=== PATIENT | female | born 1955 | race Caucasian/White ===

== ENCOUNTER → 2016-10-15 | Outpatient (CLI) | payer OTHER ==
[~2016-10-15] MED LIST: ACET65TA; DILA100C; PERCOCET PO; SUMA50TA2 PO
--- NOTE | 2016-10-15 14:16 | REP ---
MR BRAIN WITHOUT AND WITH CONTRAST: HISTORY: Lung carcinoma. CONTRAST: ProHance 7 mL. Several punctate areas of increased signal intensity on T2-weighted images are present in the periventricular and subcortical white matter. This represents small vessel ischemic disease. There is no intraparenchymal hemorrhage, infarct, mass or midline shift. There is no abdominal enhancement. The ventricular system and cortical sulci are dilated consistent with minimal volume loss. There is no extracerebral collection. The sinuses are clear. A 1 cm cyst is present in the left parotid gland. IMPRESSION: 1. Minimal small vessel ischemic disease. 2. Minimal volume loss. 3. 1 cm left parotid cyst. Ultrasound may be helpful for further evaluation. Signed by Andrea Baxter MD 10/15/2016 02:24 P
== END ==
LOC: M RAD 10:44
PROVIDERS: ATTEND Thoracic Surgery (Cardiothoracic Vascular Surgery)
DX: I73.9 Peripheral vascular disease, unspecified (principal); K11.6 Mucocele of salivary gland; C34.11 Malignant neoplasm of upper lobe, right bronchus or lung; R51 Headache
CPT/HCPCS: 70553; A9576

== ENCOUNTER → 2016-10-16 | Outpatient (CLI) | payer OTHER ==
--- NOTE | 2016-10-16 22:19 | ECGEPIP ---
Stationary ECG Study [facility] Test Date: 2016-10-16 Pat Name: ZEENAT BUSTOS Department: Room: - Gender: F Groutman: : 1955 Requested By: Triston Contreras Order Number: [id number] Reading MD: Da Kelly Measurements Intervals Force Rate: 65 P: 76 SD: 150 QRS: 146 QRSD: 84 T: 69 QT: 356 QTc: 372 Interpretive Statements Normal sinus rhythm Left atrial enlargement Force indeterminate Incomplete right bundle branch block Comparison tracing not on file Electronically Signed On 10-16-2016 22:18:54 EST by Da Kelly
== END ==
LOC: M LAB 11:16
PROVIDERS: ATTEND Thoracic Surgery (Cardiothoracic Vascular Surgery)
DX: R91.8 Other nonspecific abnormal finding of lung field (principal); R63.4 Abnormal weight loss

== ENCOUNTER → 2016-10-18 | Day surgery (SDC) | payer OTHER ==
[~2016-10-18] VITALS: Ht 157.5 cm; Wt 37.2 kg
[~2016-10-18] MED LIST changes: +BUPIVACAINE LIPOSOME/PF 1.3% 20ML (266MG/20ML) VIAL (EXPAREL) As Ordered ONE; +BUPIVACAINE LIPOSOME/PF 1.3% 20ML (266MG/20ML) VIAL (EXPAREL) XX ONE; +CETACAINE SPRAY 20GM (FLOOR STOCK) As Ordered ONE; +EPINEPHrine 1MG/10ML SYRINGE 1.5IN As Ordered ONE; +GLYCOPYRROLATE INJ 0.2 MG/ML 2 ML VIAL As Ordered ONE; +LIDOCAINE 1% MDV 20ML VIAL As Ordered ONE; +LIDOCAINE 2% INJ 100 MG/5 ML SDV (FOR ANES.) As Ordered ONE; +LR 1,000 ML IV SCH; +MIDAZOLAM INJ 2 MG/2 ML VIAL (J2250) As Ordered ONE; +MUPIROCIN 2% OINT 22 GM TUBE TOP ONE; +NEOSTIGMINE 1MG/ML 5 ML SYRINGE (J2710) As Ordered ONE; +ONDANSETRON 4MG/2ML VIAL (J2405) As Ordered ONE; +ONDANSETRON 4MG/2ML VIAL (J2405) IV PRN; +PERCOCET 5MG/325MG TAB As Ordered ONE; +PERCOCET 5MG/325MG TAB PO ONE; +PERCOCET 5MG/325MG TAB PO PRN; +PROPOFOL 200 MG/20 ML VIAL As Ordered ONE; +ROCURONIUM BROMIDE 50 MG/5 ML VIAL As Ordered ONE; +THROMBIN SOLN 20,000 UNITS KIT As Ordered ONE; +THROMBIN SOLN 5,000 UNITS VIAL As Ordered ONE; +VANCOMYCIN 1000 MG/20 ML VIAL (J3370) As Ordered ONE; +VANCOMYCIN HCL 1,000 MG, VIAL MATE ADAPTER 1 EACH in D5W 250 ML IV ONE; +ePHEDrine SULFATE 25 MG/5 ML(5MG/ML) SYRINGE As Ordered ONE; +fentaNYL 100 MCG/2 ML INJECTION (J3010) As Ordered ONE
--- NOTE | 2016-10-18 13:45 | REP ---
Chest two views HISTORY: Abnormal chest x-ray Comparison: None The lungs are hyperinflated. The lungs are clear. The heart is normal in size. The pulmonary vasculature is normal in appearance. The bony structure is intact. IMPRESSION: No acute disease. Signed by Andrea Baxter MD 10/18/2016 01:36 P
[2016-10-18] MEDS: THROMBIN SOLN 20,000 UNITS KIT XX ONE ×2 (15:24→15:51)
[2016-10-18] MEDS: fentaNYL 100 MCG/2 ML INJECTION (J3010) IV PRN ×4 (16:15→16:37)
--- NOTE | 2016-10-18 16:35 | REP ---
AP PORTABLE SITTING CHEST RADIOGRAPH, 10/18/2016: INDICATION: Abnormal chest radiograph. Post-op in the PACU. Cardiomediastinal silhouette is normal. There is moderate hyperinflation and flattening of the diaphragm consistent with COPD. There is cephalization of pulmonary vasculature consistent with pulmonary venous hypertension. Bilateral nipple shadows are projected over the inferior third chest bilaterally. Bones and soft-tissues within normal limits. There is no pneumothorax. IMPRESSION: 1. Hyperinflation with flattening of the diaphragm compatible with COPD. 2. Pulmonary venous hypertension. 3. No evidence of pneumothorax. MTDD
[2016-10-18 17:55] VITALS: BP 131/64
--- NOTE | 2016-10-19 08:58 | RO ---
DATE OF PROCEDURE: 10/18/2016 PREPROCEDURE DIAGNOSES: Mediastinal lymphadenopathy. Possible metastasis from right upper lobe lesion. POSTPROCEDURE DIAGNOSES: Mediastinal lymphadenopathy. Possible metastasis from right upper lobe lesion. PROCEDURE: Mediastinoscopy and bronchoscopy. SURGEON: Dr. Triston Knight. ENVIRONMENTAL CONSERVATION PROFESSOR: ANESTHESIA: ESTIMATED BLOOD LOSS: FINDINGS: Bronchoscopy revealed a normal right tracheobronchial tree. She had a very small trachea only accompanying a 7.5 tube. There are no endobronchial lesions seen. There are copious amounts of secretions which were suction aspirated. The mediastinoscopy showed s jen collection which looked anthracotic at the takeoff of the right and left bronchi at the emily. These were removed in toto. On a patient with single lumen endotracheal intubation, bronchoscopy was placed into the tracheobronchial tree with the above results. There were no endobronchial lesions seen. Subsegments were suction aspirated so they could thoroughly be inspected. Patient was then prepped and draped in the usual sterile fashion. A standard suprasternal notch incision was then made and carried down through the subcutaneous tissue. She is a very thin cachectic lady and a prominent neck vein was avoided medial to the sternocleidomastoid muscle. Pretracheal fascia was entered and the mediastinoscope was placed into the chest. Adventitious tissue was swept away with section dissector as well as electrocautery. I could get down and see clearly the takeoff of the right and left main stem bronchi. The precarinal node just at the takeoff of the upper and lower lobes could be seen. This was dissected out and then copiously biopsied to the point of removal. This was sent for permanent sections. They did look anthracotic to me. After achieving adequate hemostasis with and Gelfoam and electrocautery, the strap muscles were closed by use of #3-0 Vicryl running suture as was the subcutaneous tissue and the skin closed with running #4-0 Monocryl subcuticular suture. The patient tolerated the procedure well and left the operating room in satisfactory condition for the recovery room.
== END ==
LOC: M SDC 12:16 → MERGE 14:30
PROVIDERS: ATTEND Thoracic Surgery (Cardiothoracic Vascular Surgery)
DX: R91.8 Other nonspecific abnormal finding of lung field (principal); R63.4 Abnormal weight loss; J44.9 Chronic obstructive pulmonary disease, unspecified; I70.0 Atherosclerosis of aorta; F41.9 Anxiety disorder, unspecified; F32.9 Major depressive disorder, single episode, unspecified; G40.919 Epilepsy, unspecified, intractable, without status epilepticus; L50.9 Urticaria, unspecified; G43.801 Other migraine, not intractable, with status migrainosus; F12.90 Cannabis use, unspecified, uncomplicated; M85.80 Other specified disorders of bone density and structure, unspecified site; R64 Cachexia; R29.898 Other symptoms and signs involving the musculoskeletal system; C34.90 Malignant neoplasm of unspecified part of unspecified bronchus or lung; Z88.0 Allergy status to penicillin; Z88.5 Allergy status to narcotic agent; Z88.6 Allergy status to analgesic agent; Z88.8 Allergy status to other drugs, medicaments and biological substances; Z79.899 Other long term (current) drug therapy; Z86.73 Personal history of transient ischemic attack (TIA), and cerebral infarction without residual deficits; Z98.51 Tubal ligation status; Z87.81 Personal history of (healed) traumatic fracture; Z20.1 Contact with and (suspected) exposure to tuberculosis
CPT/HCPCS: 31622; 39401; 71010; 71020; 88305; J2250; J2405; J2710; J3010; J3370

== ENCOUNTER → 2016-10-25 | Outpatient (CLI) | payer OTHER ==
[~2016-10-25] MED LIST changes: -BUPIVACAINE LIPOSOME/PF 1.3% 20ML (266MG/20ML) VIAL (EXPAREL) As Ordered ONE; -BUPIVACAINE LIPOSOME/PF 1.3% 20ML (266MG/20ML) VIAL (EXPAREL) XX ONE; -CETACAINE SPRAY 20GM (FLOOR STOCK) As Ordered ONE; -EPINEPHrine 1MG/10ML SYRINGE 1.5IN As Ordered ONE; -GLYCOPYRROLATE INJ 0.2 MG/ML 2 ML VIAL As Ordered ONE; -LIDOCAINE 1% MDV 20ML VIAL As Ordered ONE; -LIDOCAINE 2% INJ 100 MG/5 ML SDV (FOR ANES.) As Ordered ONE; -LR 1,000 ML IV SCH; -MIDAZOLAM INJ 2 MG/2 ML VIAL (J2250) As Ordered ONE; -MUPIROCIN 2% OINT 22 GM TUBE TOP ONE; -NEOSTIGMINE 1MG/ML 5 ML SYRINGE (J2710) As Ordered ONE; -ONDANSETRON 4MG/2ML VIAL (J2405) As Ordered ONE; -ONDANSETRON 4MG/2ML VIAL (J2405) IV PRN; -PERCOCET 5MG/325MG TAB As Ordered ONE; -PERCOCET 5MG/325MG TAB PO ONE; -PERCOCET 5MG/325MG TAB PO PRN; -PROPOFOL 200 MG/20 ML VIAL As Ordered ONE; -ROCURONIUM BROMIDE 50 MG/5 ML VIAL As Ordered ONE; -THROMBIN SOLN 20,000 UNITS KIT As Ordered ONE; -THROMBIN SOLN 5,000 UNITS VIAL As Ordered ONE; -VANCOMYCIN 1000 MG/20 ML VIAL (J3370) As Ordered ONE; -VANCOMYCIN HCL 1,000 MG, VIAL MATE ADAPTER 1 EACH in D5W 250 ML IV ONE; -ePHEDrine SULFATE 25 MG/5 ML(5MG/ML) SYRINGE As Ordered ONE; -fentaNYL 100 MCG/2 ML INJECTION (J3010) As Ordered ONE
--- NOTE | 2016-10-26 02:22 | REP ---
Clinical: Mass. Preoperative evaluation. Technique: PA and lateral. Comparison: 10/18/2016. Findings: A 13 mm ovoid density in the right mid to lower lung zone midclavicular line likely represents asymmetric nipple shadow and less likely nodule. The lung pulliam demonstrate chronic stable changes without further acute consolidation effusion or pneumothorax identified. Mediastinum and cardiac silhouette are stable. Skeletal structures demonstrate age-related degenerative changes. Impression: 1. Suspected right-sided asymmetric nipple shadow and less likely nodule. 2. Chronic changes without further acute cardiopulmonary process appreciated. Signed by Felix Lee MD 10/26/2016 02:13 A
== END ==
LOC: M RAD 10:34
PROVIDERS: ATTEND Thoracic Surgery (Cardiothoracic Vascular Surgery)
DX: R22.2 Localized swelling, mass and lump, trunk (principal)

== ENCOUNTER → 2016-11-12 | Outpatient (CLI) | payer OTHER ==
[2016-11-12 13:49] LABS: MEAN CORPUSCULAR HEMOGLOBIN 28.6 pg (27.0-33.0); MEAN CORPUSCULAR HGB CONC 31.8 g/dl (32.0-36.5); MEAN CORPUSCULAR VOLUME 89.8 fl (80.0-96.0); RED CELL DISTRIBUTION WIDTH 13.1 % (11.5-14.5); WHITE BLOOD COUNT 6.7 K/mm3 (4.0-10.0)
[2016-11-12 13:55] LABS: ANION GAP 10 MEQ/L (8-16); BLOOD UREA NITROGEN 13 MG/DL (7-18); CALCIUM LEVEL 9.6 MG/DL (8.8-10.2); CARBON DIOXIDE LEVEL 26 MEQ/L (21-32); CHLORIDE LEVEL 110 MEQ/L (98-107); CREATININE FOR GFR 0.94 MG/DL (0.55-1.02); GLOMERULAR FILTRATION RATE > 60.0 (>45); GLUCOSE, FASTING 100 MG/DL (80-110); POTASSIUM SERUM 4.1 MEQ/L (3.5-5.1); SODIUM LEVEL 146 MEQ/L (136-145)
[2016-11-12 14:13] LABS: INR 0.94
== END ==
LOC: M LAB 12:05
PROVIDERS: ATTEND Thoracic Surgery (Cardiothoracic Vascular Surgery)
DX: R91.8 Other nonspecific abnormal finding of lung field (principal)

== ENCOUNTER 2016-11-15 06:35 | Inpatient (IN) | payer OTHER ==
[2016-11-15] VITALS (8 sets, daily range): BP systolic 92–113; BP diastolic 44–60; O2SAT 99
[~2016-11-15] VITALS: Ht 157.5 cm; Wt 42.2 kg
[2016-11-15] MEDS ORDERED: LR 1,000 ML IV SCH ×3 (06:45→16:30)
[2016-11-15 07:18] LABS: ABG BASE EXCESS -0.6 (-2.0-2.0); ABG PARTIAL PRESSURE CO2 39.5 mmHg (35.0-45.0); ABG PARTIAL PRESSURE O2 86.8 mmHg (75.0-100.0); ABG STANDARD HCO3 23.9 MEQ/L (22.0-26.0); ABG TOTAL CO2 25.2 MEQ/L (23.0-31.0); ABG pH (ARTERIAL) 7.401 UNITS (7.350-7.450)
[2016-11-15] MEDS ORDERED: BUPIVACAINE LIPOSOME/PF 1.3% 20 ML VIAL (13.3MG/ML)(EXPAREL) As Ordered ONE (07:48)
[2016-11-15] MEDS ORDERED: BUPIVACAINE HCL 0.5% 30 ML VIAL As Ordered ONE (07:48)
[2016-11-15] MEDS ORDERED: CETACAINE SPRAY 20GM (FLOOR STOCK) As Ordered ONE (07:53)
[2016-11-15] MEDS ORDERED: MUPIROCIN 2% OINT 22 GM TUBE TOP ONE (08:00)
[2016-11-15] MEDS ORDERED: VANCOMYCIN HCL 1,000 MG, VIAL MATE ADAPTER 1 EACH in D5W 250 ML IV ONE (08:00)
[2016-11-15] MEDS ORDERED: BUPIVACAINE HCL 0.5% 10 ML VIAL As Ordered ONE (08:08)
--- NOTE | 2016-11-15 08:11 | REP ---
Clinical: Preoperative assessment. Technique: PA and lateral. Comparison: 10/25/2016. Findings: Mediastinum and cardiac silhouette are within normal limits and stable. Lung pulliam demonstrate diffuse chronic COPD/emphysematous changes and interstitial disease. No focal consolidation, effusion, or pneumothorax. Previously suspected right-sided nodule not well identified on current examination. Skeletal structures intact. Airway patent and midline. Impression: Chronic interstitial changes. Signed by Felix Lee MD 11/15/2016 08:02 A
[2016-11-15] MEDS ORDERED: fentaNYL 100 MCG/2 ML INJECTION (J3010) As Ordered ONE ×3 (08:18→14:43)
[2016-11-15] MEDS ORDERED: MIDAZOLAM INJ 2 MG/2 ML VIAL (J2250) As Ordered ONE ×2 (08:18→10:32)
[2016-11-15] MEDS: MIDAZOLAM INJ 2 MG/2 ML VIAL (J2250) IV PRN ×2 (08:42→08:44)
[2016-11-15] MEDS: fentaNYL 100 MCG/2 ML INJECTION (J3010) IV PRN ×6 (08:42→15:03)
--- NOTE | 2016-11-15 09:15 | ECGEPIP ---
Stationary ECG Study [facility] Test Date: 2016-11-15 Pat Name: ZEENAT BUSTOS Department: Room: [place] [address] Gender: F Chief Power Dispatcher: DORETHA : 1955 Requested By: Triston Contreras Order Number: [id number] Reading MD: Satya Hammond Measurements Intervals Edison Rate: 67 P: 73 WV: 151 QRS: 240 QRSD: 89 T: 71 QT: 377 QTc: 398 Interpretive Statements Somatic artifact Normal sinus rhythm Indeterminate frontal axis, subtle incomplete RBBB with prominent R prime in V1 and V2 and persistent S waves in V5 and V6 Coronary disease versus body habitus. No change from 10/16/16 Electronically Signed On 11-15-2016 9:14:58 EST by Satya Hammond
[2016-11-15] MEDS ORDERED: BUPIVACAINE HCL 0.5% 30 ML VIAL XX ONE (10:25)
[2016-11-15] MEDS ORDERED: BUPIVACAINE LIPOSOME/PF 1.3% 20 ML VIAL (13.3MG/ML)(EXPAREL) XX ONE (10:26)
[2016-11-15] MEDS ORDERED: fentaNYL 250 MCG/5 ML INJECTION (J3010) As Ordered ONE (10:32)
[2016-11-15] MEDS ORDERED: PROPOFOL 200 MG/20 ML VIAL As Ordered ONE (10:32)
[2016-11-15] MEDS ORDERED: LIDOCAINE 2% INJ 100 MG/5 ML SDV (FOR ANES.) As Ordered ONE (10:32)
[2016-11-15] MEDS ORDERED: ROCURONIUM BROMIDE 50 MG/5 ML VIAL As Ordered ONE ×2 (10:32→10:53)
[2016-11-15] MEDS ORDERED: BUPIVACAINE HCL 0.25% 30 ML VIAL As Ordered ONE (10:32)
[2016-11-15] MEDS ORDERED: dexameTHASONE 4 MG/ML 1ML VIAL (J1100) As Ordered ONE (10:32)
[2016-11-15] MEDS ORDERED: METOCLOPRAMIDE INJ 10MG/2ML VIAL (J2765) IV PRN (12:00)
[2016-11-15] MEDS ORDERED: EPIDURAL/PCA KEYS XX PRN (12:00)
[2016-11-15] MEDS ORDERED: diphenhydrAMINE INJ 50MG/ML VIAL (J1200) IV PRN (12:00)
[2016-11-15] MEDS ORDERED: WALLBOXKEY XX PRN (12:00)
[2016-11-15] MEDS ORDERED: NALOXONE INJ 0.4 MG/1 ML VIAL (J2310) IV PRN (12:00)
[2016-11-15] MEDS ORDERED: ONDANSETRON 4MG/2ML VIAL (J2405) IV PRN ×4 (12:00→16:30)
[2016-11-15] MEDS ORDERED: DESFLURANE 240 ML INHALANT As Ordered ONE (12:29)
[2016-11-15] MEDS ORDERED: FENTANYL 2MCG/ML BUPIVACAINE 0.0625% NACL 250ML CADD As Ordered ONE (12:34)
[2016-11-15] MEDS ORDERED: NEOSTIGMINE 1MG/ML 5 ML SYRINGE (J2710) As Ordered ONE (13:18)
[2016-11-15] MEDS ORDERED: ONDANSETRON 4MG/2ML VIAL (J2405) As Ordered ONE (13:18)
[2016-11-15] MEDS ORDERED: GLYCOPYRROLATE INJ 0.2 MG/ML 2 ML VIAL As Ordered ONE (13:18)
[2016-11-15] MEDS ORDERED: LEVALBUTEROL 1.25 MG/0.5 ML CONCENTRATE NEB NEB PRN (13:45)
[2016-11-15] MEDS ORDERED: BISACODYL 10 MG SUPP PR PRN (13:45)
[2016-11-15] MEDS ORDERED: ACETAMINOPHEN TAB 650MG DOSE (2X325MG) PO PRN (13:45)
[2016-11-15] MEDS ORDERED: PERCOCET 5MG/325MG TAB PO PRN (13:45)
[2016-11-15] MEDS: LEVALBUTEROL 1.25 MG/0.5 ML CONCENTRATE NEB NEB SCH ×2 (14:00→20:14)
[2016-11-15 14:25] LABS: BASO % 0.1 % (0.0-1.0); EOS # 0.2 K/mm3 (0.0-0.50); LARGE UNSTAINED CELL # 0.1 K/mm3 (0.0-0.4); LARGE UNSTAINED CELL % 0.4 % (0.0-4.0); LYMPH # 1.1 K/mm3 (1.5-4.5); LYMPH % 8.3 % (24.0-44.0); MEAN CORPUSCULAR HEMOGLOBIN 28.7 pg (27.0-33.0); MEAN CORPUSCULAR HGB CONC 32.5 g/dl (32.0-36.5); MEAN CORPUSCULAR VOLUME 88.2 fl (80.0-96.0); MONO # 0.3 K/mm3 (0.0-0.8); MONO % 2.1 % (0.0-5.0); NEUTROPHILS # 11.3 K/mm3 (1.8-7.7); NEUTROPHILS % 87.1 % (36.0-66.0); PLATELET COUNT, AUTOMATED 272 k/mm3 (150-450)
[2016-11-15] MEDS ORDERED: KETOROLAC 30 MG/ML VIAL (J1885) As Ordered ONE (14:29)
[2016-11-15 14:30] LABS: ABG BASE EXCESS -0.8 (-2.0-2.0); ABG HCO3 25.7 MEQ/L (22.0-26.0); ABG STANDARD HCO3 23.8 MEQ/L (22.0-26.0); ABG TOTAL CO2 27.2 MEQ/L (23.0-31.0); ABG pH (ARTERIAL) 7.329 UNITS (7.350-7.450)
[2016-11-15 14:46] LABS: ANION GAP 7 MEQ/L (8-16); BLOOD UREA NITROGEN 15 MG/DL (7-18); CALCIUM LEVEL 8.3 MG/DL (8.8-10.2); CARBON DIOXIDE LEVEL 26 MEQ/L (21-32); CHLORIDE LEVEL 109 MEQ/L (98-107); CREATININE FOR GFR 0.84 MG/DL (0.55-1.02); GLOMERULAR FILTRATION RATE > 60.0 (>45); GLUCOSE, FASTING 153 MG/DL (80-110); POTASSIUM SERUM 3.8 MEQ/L (3.5-5.1); SODIUM LEVEL 142 MEQ/L (136-145)
--- NOTE | 2016-11-15 15:11 | REP ---
PORTABLE CHEST: AP portable view of the chest is performed and compared with prior study the same day. There are two right chest tubes in place. There is no pneumothorax. No consolidation is seen. Multiple metallic clips are seen in the right hilar region. The heart is normal in size. IMPRESSION: Two right chest tubes in place. No pneumothorax. Metallic clips right hilar region. Signed by Levon Gibbons MD 11/16/2016 06:28 P
[2016-11-15] MEDS ORDERED: KETOROLAC 30 MG/ML VIAL (J1885) IV ONE (15:15)
[2016-11-15] MEDS ORDERED: D5W 100ML MINI-BAG PLUS As Ordered ONE (15:54)
[2016-11-15] MEDS ORDERED: PHENYLEPHRINE INJ 10MG/ML VIAL (J2370) As Ordered ONE (15:54)
[2016-11-15] MEDS ORDERED: fentaNYL 100 MCG/2 ML INJECTION (J3010) IV PRN (16:30)
[2016-11-15] MEDS ORDERED: PHENYLEPHRINE INJ 10MG/ML VIAL (J2370) IV SCH (16:30)
[2016-11-15] MEDS ORDERED: LR 250 ML IV SCH (17:45)
[2016-11-15] MEDS: KCL 20MEQ IN D5/NS 1000ML 1,000 ML IV SCH (19:00)
[2016-11-15] MEDS: FENTANYL/BUPIVACAINE/NACL CADD 250 ML EPIDURAL SCH (19:00)
[2016-11-15] MEDS ORDERED: NS 500 ML IV ONE (21:15)
[2016-11-15] MEDS: HEPARIN SOD (PORCINE) 5000 UNITS/ML VIAL SC SCH (21:28)
[2016-11-15] MEDS: DOCUSATE SODIUM 100 MG CAP PO SCH (21:38)
[2016-11-15] MEDS: KETOROLAC 30 MG/ML VIAL (J1885) IV SCH (21:38)
[2016-11-15] MEDS: PANTOPRAZOLE 40MG INJ (PROTONIX) (C9113) IV SCH (22:54)
[2016-11-16] VITALS (28 sets, daily range): BP systolic 94–145; BP diastolic 39–64; O2SAT 97–100
[2016-11-16] MEDS: LEVALBUTEROL 1.25 MG/0.5 ML CONCENTRATE NEB NEB SCH ×4 (02:19→20:28)
[2016-11-16] MEDS: KETOROLAC 30 MG/ML VIAL (J1885) IV SCH ×4 (03:16→20:56)
[2016-11-16] MEDS ORDERED: FLUMAZENIL 0.5 MG/5 ML VIAL As Ordered ONE (05:49)
[2016-11-16] MEDS ORDERED: MIDAZOLAM INJ 2 MG/2 ML VIAL (J2250) As Ordered ONE ×2 (05:50→06:36)
[2016-11-16] MEDS ORDERED: LIDOCAINE 1% MDV 20ML VIAL As Ordered ONE (05:52)
[2016-11-16 06:05] LABS: ABG BASE EXCESS -2.7 (-2.0-2.0); ABG HCO3 19.5 MEQ/L (22.0-26.0); ABG PARTIAL PRESSURE CO2 25.9 mmHg (35.0-45.0); ABG PARTIAL PRESSURE O2 110.2 mmHg (75.0-100.0); ABG STANDARD HCO3 22.3 MEQ/L (22.0-26.0); ABG TOTAL CO2 20.3 MEQ/L (23.0-31.0); ABG pH (ARTERIAL) 7.494 UNITS (7.350-7.450)
[2016-11-16 06:08] LABS: BASO % 0.1 % (0.0-1.0); EOS # 0.4 K/mm3 (0.0-0.50); LARGE UNSTAINED CELL # 0.1 K/mm3 (0.0-0.4); LARGE UNSTAINED CELL % 0.9 % (0.0-4.0); LYMPH # 0.8 K/mm3 (1.5-4.5); LYMPH % 7.7 % (24.0-44.0); MEAN CORPUSCULAR HEMOGLOBIN 29.1 pg (27.0-33.0); MONO # 0.3 K/mm3 (0.0-0.8); MONO % 3.2 % (0.0-5.0); NEUTROPHILS % 84.1 % (36.0-66.0); PLATELET COUNT, AUTOMATED 196 k/mm3 (150-450); RED CELL DISTRIBUTION WIDTH 13.1 % (11.5-14.5); WHITE BLOOD COUNT 10.7 K/mm3 (4.0-10.0)
[2016-11-16 06:34] LABS: ANION GAP 13 MEQ/L (8-16); BLOOD UREA NITROGEN 14 MG/DL (7-18); CALCIUM LEVEL 7.3 MG/DL (8.8-10.2); CARBON DIOXIDE LEVEL 18 MEQ/L (21-32); CHLORIDE LEVEL 114 MEQ/L (98-107); CREATININE FOR GFR 0.84 MG/DL (0.55-1.02); GLOMERULAR FILTRATION RATE > 60.0 (>45); GLUCOSE, FASTING 107 MG/DL (80-110); SODIUM LEVEL 145 MEQ/L (136-145)
--- NOTE | 2016-11-16 07:59 | REP ---
Clinical: Chest tube. Comparison: 11/15/2016 at 14:28. Findings: Two Right apical chest tubes in stable position. Increasing subcutaneous emphysema along the right chest wall. Mediastinum and cardiac silhouette are stable. Lung pulliam demonstrate chronic interstitial changes without obvious consolidation, effusion, or significant pneumothorax. Skeletal structures intact. Impression: Increasing subcutaneous emphysema. Signed by Felix Lee MD 11/16/2016 07:50 A
--- NOTE | 2016-11-16 08:15 | RO ---
DATE OF PROCEDURE: 11/15/2016 PREPROCEDURE DIAGNOSIS: Right upper lobe lung lesion. POSTPROCEDURE DIAGNOSIS: Right upper lobe adenocarcinoma. PROCEDURE: VATS wedge resection using a subxyphoid incision followed by a right upper lobectomy and complete mediastinal node dissection, azygos flat bronchoplasty, five level rib block and bronchoscopy via thoracotomy. SURGEON: Triston Knight MD EGG PROCESSING SUPERVISOR: Verito Moreno NP ANESTHESIA: FINDINGS: The bronchoscopy revealed a normal branching tracheobronchial tree. There were no endobronchial lesions. Each segment and sub segment were thoroughly inspected. The thoracoscopy revealed a subtle lesion in the posterior aspect of the upper lobe. This was completely wedged out and sent for pathological examination which showed an adenocarcinoma. We then proceeded to a lobectomy. The superior mediastinal nodes had already been previously removed via mediastinoscopy. Subcarinal nodes were removed as were inferior pulmonary ligament nodes that were discovered. All looked anthracotic. PROCEDURE: Under satisfactory general anesthesia and single lumen tube endotracheal intubation, the bronchoscope was placed into the tracheobronchial tree with the above results. Each segment and sub segment were thoroughly inspected after removing secretions by suction aspiration. The patient was then intubated with a double lumen tube and turned into the left lateral decubitus position. The patient was then prepped and draped in the usual sterile fashion and two VATS incisions were made, one in the anterior axillary line and one in the mid axillary line inferiorly. These were planned to be used for chest tubes lateral on. There were no adhesions to the chest wall. A subxyphoid incision was made and the linea alba was divided. Entry was gained into the chest by direct visualization of the dissecting finger. A 12 mm port was placed. The lesion was found and was found to be quite subtle, but I could feel its hardness beneath the Endo Peanut. The lesion was grasped and a generous wedge resection was undertaken with a endothoracic WIN stapler. This was sent for pathological examination after removing it with an Endo Catch bag. Adenocarcinoma was returned. I dissected out the superior pulmonary vein, but I could not be absolutely sure that I was dissecting the middle lobe vein and I therefore opted to do a thoracotomy. Incision was made and the chest was entered through the 5th intercostal space. The latissimus dorsi was divided and a slip of the anterior serratus. The patient was very thin. The ribs were gently spread and the pulmonary vein that I dissected was indeed the middle lobe vein. The upper lobe vein was dissected free of surrounding adventitial tissue and surrounded with a vessel loop. Attention was then turned to the minor fissure which was entered and the pulmonary artery was found at the confluence of fissures. The pulmonary artery was dissected inferiorly and superiorly so as to demonstrate the two separate middle lobe branches and the posterior ascending branch. The posterior fissure was completed by dissecting the posterior mediastinal pleura. An Endo WIN of 4.8 mm was then used to complete the posterior fissure. Attention was then turned to the apex of the hilum where the upper lobe pulmonary arteries were then dissected free. Because she was so small, everything else with her anatomy was small and I had to take extra care that I was actually dissecting the proper vessels rather than the main pulmonary artery. Indeed, these were identified. The pulmonary vein was then divided by use of a WIN vascular stapler as was the upper lobe apex arteries. There was one remaining vessel, which was found during dissection of the remainder of the fissure. Having divided the vein, the fissure was easily divided by use of a WIN stapler. The two remaining arteries were then divided by use of a vascular WIN stapler. This then left the bronchus. All the nodes were swept up onto the bronchus. One parenchyma was rather inflamed and sticky to the mediastinum and the hilum and this had to be carefully dissected. Finally, the upper lobe bronchus could be readily identified and a WIN stapler was placed through the epigastric port. This was closed and the lung remained inflated. The upper lobe did not reinflate whereas the middle and lower lobes did. The stapler was fired and the lung was sent for pathological examination after removing it from the chest cavity. Attention was then turned to the upper mediastinum. The overlying pleura was incised. The nodes had previously been removed, but I wanted to check for any residuals. I did not find any, however, her subclavian vein was nicked with the scissors. This was quickly sewn up with figure-of-8 #5-0 Prolene with minimal blood loss. The inferior pulmonary ligament was then divided and the subcarinal node packet was identified. This was then removed by use of a Harmonic scalpel. These were sent for separate pathological examinations. During the incision of the inferior pulmonary ligament, a large node was found and this was also sent for pathological examination after removing with the Harmonic scalpel. The bronchus was tested to 30 cm of water and was found to be intact. There were some parenchymal leaks at the staple lines. The azygos vein was dissected free of the superior vena cava and divided by use of a WIN 35 vascular stapler. The base of the azygos vein was then stapled with two TA vascular staple lines. The top was incised and filleted open. Then an azygos flap bronchoplasty was then undertaken with interrupted #3-0 Vicryl sutures to cover the entire stump. TISSEEL glue was placed in the mediastinal dissection fossa including the subcarinal nodes. A five level rib block consisting of Marcaine and Exparel was then injected. Two chest tubes were placed. The ribs were reapproximated by use of figure-of-8 #1 Prolene sutures. The lung was reinflated and TISSEEL glue was placed on the staple lines. The pericostal sutures were tired and buried in the intercostal muscles. The extra thoracic muscles were reapproximated with the use of running #0 Vicryl suture and the subcutaneous tissues were closed with running #3-0 Vicryl and the skin by use of #3-0 Monocryl subcuticular suture. The epigastric incision was closed with running #0 Vicryl suture for the linea alba and #3-0 Vicryl suture for the subcutaneous tissue and #4-0 Monocryl subcuticular suture for the skin. The patient tolerated the procedure well and left the operating room in satisfactory condition for the recovery room. RAJ
[2016-11-16] MEDS ORDERED: LIDOCAINE 1% MDV 20ML VIAL SC ONE (08:30)
[2016-11-16] MEDS ORDERED: MIDAZOLAM INJ 2 MG/2 ML VIAL (J2250) IV ONE (08:30)
--- NOTE | 2016-11-16 08:42 | REP ---
Portable chest, 05:43 a.m., single AP view, patient sitting: Comparisons are 11/15/2016, 10/25/2016 and 08/28/2010. The there are two right chest tubes, unchanged from 11/15/16. Subcutaneous emphysema is again noted along the right lateral chest wall extending into the right supraclavicular area and soft tissues of the neck on the right. There is no pneumothorax or pleural fluid collection. There is a 1.5 cm nodular density inferiorly in the right lung, similar appearance to 10/25/2016 but not present 08/28/2010. There are no chest CT studies in our film file to determine if this nodule is calcified. Therefore, chest CT might be considered for further evaluation of this nodular density. Left lung is clear. Cardiac size normal. Epidural catheter is again noted. Vero, mediastinum, and bony thorax are unchanged. Impression: No significant change from 11/15/2016. There is a 1.5 cm nodule inferiorly in the right lung. CT followup is recommended to determine if this nodule is calcified. Signed by Levon Vazquez MD 11/16/2016 08:34 A
--- NOTE | 2016-11-16 08:45 | REP ---
Clinical: Chest tube repositioning. Comparison: 11/16/2016 at 05:43 a.m. Findings: Two right apical chest tubes are again identified. Moderate amount of subcutaneous emphysema overlies the right chest wall similar to prior examination. Mediastinum and cardiac silhouette and bilateral lung pulliam are relatively stable. No obvious acute consolidation, effusion or pneumothorax appreciated. Impression: Moderate right-sided subcutaneous emphysema. Two right apical chest tubes. No new acute mediastinal or pleuroparenchymal process appreciated. Signed by Felix Lee MD 11/16/2016 08:37 A
[2016-11-16] MEDS: MOM 30ML SUSPENSION UDC PO SCH (09:00)
[2016-11-16] MEDS: DOCUSATE SODIUM 100 MG CAP PO SCH ×2 (09:57→20:55)
[2016-11-16] MEDS: PANTOPRAZOLE 40MG INJ (PROTONIX) (C9113) IV SCH (09:57)
[2016-11-16] MEDS: KCL 20MEQ IN D5/NS 1000ML 1,000 ML IV SCH ×2 (09:57→22:40)
[2016-11-16] MEDS: HEPARIN SOD (PORCINE) 5000 UNITS/ML VIAL SC SCH ×2 (09:59→20:57)
--- NOTE | 2016-11-16 11:07 | REP ---
Clinical: Follow up pleural effusion. Technique: PA and lateral. Comparison: 11/16/2016. Findings: Two right apical chest tubes in stable position. Moderate subcutaneous emphysema along the right chest wall stable. Mediastinum and cardiac silhouette and bilateral lung pulliam are stable. Skeletal structures intact. Impression: No significant change from prior examination. Signed by Felix Lee MD 11/16/2016 10:58 A
--- NOTE | 2016-11-16 11:50 | IPN ---
DATE: 11/15/2016 This is the first postoperative day for Mrs. Akhtar.. We have had quite a bit of trouble with the chest tubes overnight. One chest tube came undone and had to be reconnected. Today, she complains of increased neck pain, in addition to the usual shoulder pain. Chest x-ray shows the tubes in the cupula, abutting the pleura. She does not complain of too much pain at the incision site. I am hoping that the tubes abutting against the pleura are causing her pain and I pulled the tubes back about 1.5 inches. Her vital signs shows a maximum temperature (t-max) of 98.1 with a heart rate that ranges between 77 and 86 in a sinus rhythm, respiratory rate of 18 to 26 without the use of accessory muscles, who is 97 to 100% saturated on 2 liters nasal cannula, and whose blood pressure is ranging between 104/47 to 124/55. She is complaining of much more intense pain, as noted above, particularly in the shoulder, in the cupula, in the neck. On her intake and output over the last 24 hours, it has been recorded as 2585 in and 1155 out for a positivity of 1230 mL. I did give her 500 mL bolus yesterday for some mild hypotension. Urine output was 680. Her chest tube has put out 275 mL up until midnight and 140 mL since midnight. Weight is pending today. PHYSICAL EXAMINATION: LUNGS: Her lungs show crackles of subcutaneous emphysema with subcutaneous emphysema palpable over the lateral and anterior chest aparicio and into the neck. This is not quite up to the angle of the jaw yet. Her left lung shows some inspiratory and expiratory wheezing. It is very fine wheezing. Percussion note is full to the diaphragm. CARDIAC EXAM: Without murmurs, clicks, gallops or rubs. I cannot feel her point of maximum impulse (PMI). S1, S2 are normal. ABDOMEN: Soft, nontender. Bowel sounds positive. She is slightly tympanitic and distended. EXTREMITIES: Show no pretibial edema. No calf tenderness. No differential swelling of the upper extremities. SKIN: Warm, dry and perfused without cyanosis or mottling, including that of the nail beds and knees. NECK: Supple. There is some jugular venous distention up to the angle of the jaw. There is subcutaneous emphysema up to the middle of the neck. Trachea is midline. MOUTH: Shows her mucous membranes to be pink and moist. Lips and commissures without lesions. There is no thrush. EYES: Show her pupils to be equal and reactive. Extraocular motion intact. Sclerae anicteric. NEUROLOGIC: Shows II through XII intact with gross motor and gross sensation intact. Gait is not tested. PSYCHIATRIC: Shows her to be awake and alert, oriented times three with appropriate mood and affect and conversational. Her white count today is 10.7 with a hemoglobin and hematocrit of 10.0 and 30.2, down from 12.2 and 37.6, just postoperatively. This is probably secondary to hemodilution. Platelet count is 196 with a differential that shows 84% neutrophils, 7% lymphocytes, 3% monocytes, 4% eosinophils. There are no immature forms and no toxic granulations. Her blood gases this morning showed a pH of 7.49, PCO2 of 25, PO2 of 110 with a base excess of -2.7. Her chemistries today showed essentially normal electrolytes with a BUN and creatinine of 14 and 0.84. Her chloride is 114. Sodium is 145 with a potassium of 4.0. Calcium is 7.3. Her chest x-ray done portably this morning shows the chest tube way up in the cupula and bending over. I pulled that back and the chest x-ray now shows the chest tube in the proper position, not abutting the pleura. There is significant subcutaneous emphysema into the neck and along the lateral chest wall. The lung , however, is fully expanded to the chest wall. I see no pneumothorax. The costophrenic angles are sharp. IMPRESSION: 1. Adenocarcinoma, final pathology pending. 2. Chronic obstructive pulmonary disease (COPD). 3. Severe emphysema. 4. Migraine headaches. 5. Status post seizure in the remote past. PLAN AND DISCUSSION: As noted above, I pulled her chest tubes back and re-taped them and repositioned them. I have turned their suction up to -40 in order to control the air leak. Her lung tissue was the consistency of tissue paper. I suspect that she is leaking from the fissure staple lines. I do not suspect a bronchial leak, as the air leak is not that massive in order to indicate an open bronchus. Furthermore, white count is stable. [facility]
[2016-11-16] MEDS: FENTANYL/BUPIVACAINE/NACL CADD 250 ML EPIDURAL SCH (11:58)
[2016-11-17] VITALS (13 sets, daily range): BP systolic 89–116; BP diastolic 48–69
[2016-11-17] MEDS: LEVALBUTEROL 1.25 MG/0.5 ML CONCENTRATE NEB NEB SCH ×4 (01:30→21:23)
[2016-11-17] MEDS: KETOROLAC 30 MG/ML VIAL (J1885) IV SCH ×4 (03:01→21:16)
[2016-11-17] MEDS: FENTANYL/BUPIVACAINE/NACL CADD 250 ML EPIDURAL SCH (05:44)
[2016-11-17 06:19] LABS: ANION GAP 7 MEQ/L (8-16); BLOOD UREA NITROGEN 10 MG/DL (7-18); CALCIUM LEVEL 7.7 MG/DL (8.8-10.2); CARBON DIOXIDE LEVEL 23 MEQ/L (21-32); CHLORIDE LEVEL 112 MEQ/L (98-107); CREATININE FOR GFR 0.71 MG/DL (0.55-1.02); GLOMERULAR FILTRATION RATE > 60.0 (>45); GLUCOSE, FASTING 104 MG/DL (80-110); POTASSIUM SERUM 4.1 MEQ/L (3.5-5.1); SODIUM LEVEL 142 MEQ/L (136-145)
[2016-11-17 06:39] LABS: BASO % 0.1 % (0.0-1.0); EOS # 0.4 K/mm3 (0.0-0.50); LARGE UNSTAINED CELL # 0.1 K/mm3 (0.0-0.4); LARGE UNSTAINED CELL % 0.8 % (0.0-4.0); LYMPH # 0.8 K/mm3 (1.5-4.5); LYMPH % 11.7 % (24.0-44.0); MEAN CORPUSCULAR HEMOGLOBIN 29.6 pg (27.0-33.0); MEAN CORPUSCULAR HGB CONC 32.8 g/dl (32.0-36.5); MEAN CORPUSCULAR VOLUME 90.4 fl (80.0-96.0); MONO # 0.2 K/mm3 (0.0-0.8); MONO % 2.9 % (0.0-5.0); NEUTROPHILS % 77.5 % (36.0-66.0); PLATELET COUNT, AUTOMATED 150 k/mm3 (150-450); RED CELL DISTRIBUTION WIDTH 13.3 % (11.5-14.5); WHITE BLOOD COUNT 6.4 K/mm3 (4.0-10.0)
[2016-11-17] MEDS ORDERED: FUROSEMIDE 40 MG/4 ML VIAL (J1940) IV ONE (08:00)
[2016-11-17] MEDS: MOM 30ML SUSPENSION UDC PO SCH (08:33)
[2016-11-17] MEDS: DOCUSATE SODIUM 100 MG CAP PO SCH ×2 (08:33→21:16)
[2016-11-17] MEDS: PANTOPRAZOLE 40MG INJ (PROTONIX) (C9113) IV SCH (08:33)
[2016-11-17] MEDS: HEPARIN SOD (PORCINE) 5000 UNITS/ML VIAL SC SCH ×2 (08:34→21:16)
--- NOTE | 2016-11-17 09:37 | REP ---
Clinical: Pleural effusion. Comparison: 11/16/2016. Findings: Two right apical chest tubes are in stable position with moderate subcutaneous emphysema noted extending into the neck and upper abdominal wall. Lung pulliam demonstrate diffuse chronic changes. A small right pneumothorax cannot be excluded. Small left pleural effusion and left basilar atelectasis noted. Impression: 1. Minimal left basilar atelectasis and small left pleural effusion more prominent than prior examination. 2. Right-sided changes remain relatively stable. Signed by Felix Lee MD 11/17/2016 09:29 A
[2016-11-17] MEDS ORDERED: SLF 3 ML SYR IV PRN (12:15)
[2016-11-17] MEDS: SLF 3 ML SYR IV SCH ×2 (15:17→21:17)
[2016-11-17] MEDS: SUMAtriptan SUCCINATE 25 MG TAB PO PRN (23:58)
[2016-11-18] VITALS (15 sets, daily range): BP systolic 81–110; BP diastolic 49–73
[2016-11-18] MEDS: FENTANYL/BUPIVACAINE/NACL CADD 250 ML EPIDURAL SCH ×3 (01:24→23:44)
[2016-11-18] MEDS: KETOROLAC 30 MG/ML VIAL (J1885) IV SCH ×4 (03:45→20:55)
[2016-11-18] MEDS: LEVALBUTEROL 1.25 MG/0.5 ML CONCENTRATE NEB NEB SCH ×4 (03:52→20:58)
[2016-11-18 04:49] LABS: BASO % 0.1 % (0.0-1.0); EOS # 0.6 K/mm3 (0.0-0.50); EOS % 8.3 % (0.0-3.0); LARGE UNSTAINED CELL # 0.1 K/mm3 (0.0-0.4); LARGE UNSTAINED CELL % 0.9 % (0.0-4.0); LYMPH % 14.1 % (24.0-44.0); MEAN CORPUSCULAR HEMOGLOBIN 29.8 pg (27.0-33.0); MEAN CORPUSCULAR HGB CONC 33.6 g/dl (32.0-36.5); MEAN CORPUSCULAR VOLUME 88.7 fl (80.0-96.0); MONO # 0.2 K/mm3 (0.0-0.8); MONO % 3.1 % (0.0-5.0); NEUTROPHILS # 5.2 K/mm3 (1.8-7.7); NEUTROPHILS % 73.5 % (36.0-66.0); PLATELET COUNT, AUTOMATED 171 k/mm3 (150-450); RED CELL DISTRIBUTION WIDTH 13.1 % (11.5-14.5)
[2016-11-18 05:08] LABS: ANION GAP 9 MEQ/L (8-16); BLOOD UREA NITROGEN 13 MG/DL (7-18); CALCIUM LEVEL 7.9 MG/DL (8.8-10.2); CARBON DIOXIDE LEVEL 25 MEQ/L (21-32); CHLORIDE LEVEL 106 MEQ/L (98-107); CREATININE FOR GFR 0.83 MG/DL (0.55-1.02); GLOMERULAR FILTRATION RATE > 60.0 (>45); GLUCOSE, FASTING 105 MG/DL (80-110); SODIUM LEVEL 140 MEQ/L (136-145)
[2016-11-18] MEDS: SLF 3 ML SYR IV SCH ×3 (05:37→20:56)
[2016-11-18] MEDS ORDERED: SODIUM CHLORIDE 0.9% 1000 ML IV ONE (06:45)
--- NOTE | 2016-11-18 08:09 | REP ---
Clinical: Follow up pleural effusion. Technique: PA and lateral. Comparison: 11/17/2016. Findings: Two right apical chest tubes in stable position. A small left pleural effusion may be slightly increased from prior examination. The remainder of the bilateral lung pulliam demonstrate stable pleuroparenchymal changes and right-sided subcutaneous emphysema. No further new acute process identified. Impression: Small left pleural effusion may be slightly increased from prior examination. Otherwise stable changes. Signed by Felix Lee MD 11/18/2016 08:00 A
--- NOTE | 2016-11-18 08:29 | IPN ---
DATE: 11/17/2016 This is now the second postoperative day for Mrs. Akhtar. Her subcutaneous emphysema has not gotten any worse. It is still over the anterior chest wall, breast and neck. She is breathing well and has been up out of bed. In fact, she is asking to go home in a facetious type of way. Her vital signs show a T-max of 99.0, with a heart rate that ranges between 87 and 102 in a sinus rhythm, a respiratory rate of 16 to 20 without the use of accessory muscles, who is 98% to 95% saturated on 1 liter nasal cannula and whose blood pressure is ranging between 107/48 to 93/58. Her intake and output the past 24 hours has been recorded as 2681 in and 1535 out for a positivity of 1100 mL. She weighs 45.1 kg today compared to 38.6 kg yesterday. She has put 490 mL out the chest tube and there is still an air leak, although it is not as large as it was yesterday. She was on 40 cm of water pressure and I will continue that at this point in time to make sure the air leak is fully controlled. On physical examination, her lungs show equal breath sounds on either side. I hear mostly the crackles and subcutaneous emphysema over the right side; however, beneath her subcutaneous emphysema I heat some expiratory wheezing in mid to end expiration on both sides. The right side also has some inspiratory wheezing. Percussion notes are full to the diaphragm. Cardiac Exam: Without murmurs, clicks, gallops, or rubs. I cannot feel her PMI. S1, S2 are normal. Abdomen: Soft. Nontender. Bowel sounds are positive. There is no hepatomegaly. No costovertebral angle (CVA) tenderness. Extremities: Show no pretibial edema. No calf tenderness. No differential swelling of the upper extremities. Skin: Warm, dry and perfused. Without cyanosis or mottling, including that of the nail beds and knees. Neck: Supple. There is subcutaneous emphysema. No jugular venous distention. The trachea is midline. Mouth: Shows her mucous membranes to be pink and moist. Lips and commissures are without lesions. There is no thrush. Eyes: Show her pupils to be equal and reactive. Extraocular movements intact. Sclerae nonicteric. Neurologic: Shows II-XII intact along with gross motor and gross sensation intact. Gait is not tested. Psychiatric shows her to be awake, alert, and oriented times three with appropriate mood and affect and conversational. Her white count today is down to 6.4 with hemoglobin and hematocrit of 9.0 and 27.4, probably secondary to hemodilution. Platelet count is 150 and stable. Differential shows 77% neutrophils, 7% lymphocytes and 2% monocytes. There are no immature forms and no toxic granulations. Her BUN and creatinine are 10 and 0.71 with essentially normal electrolytes. Calcium is 7.7 with a glucose of 104. Her chest x-ray today shows the lung fully expanded to the chest wall. Costophrenic angles are sharp. There is subcutaneous emphysema over the lateral chest wall into the neck, but it seems to have stabilized. Chest tubes are in good place. The mediastinum is within the midline. I see no infiltrates either on the PA view or on the lateral view. IMPRESSIONS: 1. Postoperative day #2 status post right upper lobectomy. 2. Chronic obstructive pulmonary disease (COPD). 3. Adenocarcinoma, final staging still pending pathology. 4. Alveolar pleural fistula. 5. Migraine headaches. 6. Status post seizure in the remote past. PLAN AND DISCUSSION: I will diurese her today and continue her on 40 cm of suction. Because of the problems yesterday, I will keep her one more day in the intensive care unit (ICU). If the ICU becomes overly full, I would be amenable to down grading her to the progressive care unit (PCU).
[2016-11-18] MEDS: DOCUSATE SODIUM 100 MG CAP PO SCH ×2 (08:55→20:54)
[2016-11-18] MEDS: PANTOPRAZOLE 40MG TAB (PROTONIX) PO SCH (08:55)
[2016-11-18] MEDS: HEPARIN SOD (PORCINE) 5000 UNITS/ML VIAL SC SCH ×2 (08:55→20:55)
[2016-11-18] MEDS: MOM 30ML SUSPENSION UDC PO SCH (08:55)
[2016-11-19] VITALS: BP 102/59
[2016-11-19] MEDS: LEVALBUTEROL 1.25 MG/0.5 ML CONCENTRATE NEB NEB SCH ×4 (01:11→20:55)
[2016-11-19] MEDS: KETOROLAC 30 MG/ML VIAL (J1885) IV SCH ×4 (03:26→20:27)
[2016-11-19] MEDS: SUMAtriptan SUCCINATE 25 MG TAB PO PRN (03:42)
[2016-11-19 04:00] VITALS: BP 104/68
[2016-11-19 04:30] LABS: BASO % 0.1 % (0.0-1.0); EOS # 0.6 K/mm3 (0.0-0.50); EOS % 9.3 % (0.0-3.0); LARGE UNSTAINED CELL # 0.1 K/mm3 (0.0-0.4); LARGE UNSTAINED CELL % 0.9 % (0.0-4.0); LYMPH # 0.7 K/mm3 (1.5-4.5); LYMPH % 9.2 % (24.0-44.0); MEAN CORPUSCULAR HEMOGLOBIN 29.3 pg (27.0-33.0); MEAN CORPUSCULAR HGB CONC 33.1 g/dl (32.0-36.5); MEAN CORPUSCULAR VOLUME 88.3 fl (80.0-96.0); MONO # 0.2 K/mm3 (0.0-0.8); MONO % 3.5 % (0.0-5.0); NEUTROPHILS # 5.2 K/mm3 (1.8-7.7); NEUTROPHILS % 76.9 % (36.0-66.0); PLATELET COUNT, AUTOMATED 209 k/mm3 (150-450); RED CELL DISTRIBUTION WIDTH 13.2 % (11.5-14.5); WHITE BLOOD COUNT 6.8 K/mm3 (4.0-10.0)
[2016-11-19 04:49] LABS: ANION GAP 8 MEQ/L (8-16); BLOOD UREA NITROGEN 12 MG/DL (7-18); CALCIUM LEVEL 7.9 MG/DL (8.8-10.2); CARBON DIOXIDE LEVEL 25 MEQ/L (21-32); CHLORIDE LEVEL 107 MEQ/L (98-107); CREATININE FOR GFR 0.84 MG/DL (0.55-1.02); GLOMERULAR FILTRATION RATE > 60.0 (>45); GLUCOSE, FASTING 125 MG/DL (80-110); POTASSIUM SERUM 3.9 MEQ/L (3.5-5.1); SODIUM LEVEL 140 MEQ/L (136-145)
[2016-11-19] MEDS: SLF 3 ML SYR IV SCH ×3 (05:00→22:00)
[2016-11-19 08:00] VITALS: BP 112/68
[2016-11-19] MEDS: MOM 30ML SUSPENSION UDC PO SCH (08:42)
[2016-11-19] MEDS: PANTOPRAZOLE 40MG TAB (PROTONIX) PO SCH (08:43)
[2016-11-19] MEDS: DOCUSATE SODIUM 100 MG CAP PO SCH ×2 (08:43→20:27)
[2016-11-19] MEDS: HEPARIN SOD (PORCINE) 5000 UNITS/ML VIAL SC SCH ×2 (08:43→20:27)
--- NOTE | 2016-11-19 09:34 | REP ---
CHEST PA AND LATERAL: 11/19/2016. Comparison: 11/18/2016, 11/17/2016, 11/16/2016. Clinical history: Pleural effusion, right chest tubes. Findings: Two right upper chest tubes, one in the apex, one medial in the upper lung zone unchanged. Small left pleural effusion seen. I do not see a right pleural effusion. Epidural catheter again seen mid chest. Nodular density projects over the right mid lung base anterior fifth rib as seen on all prior studies consistent with nipple shadow versus lung nodule. There is no evidence of pneumothorax. Extensive subcutaneous emphysema seen in the right chest and abdominal wall up to the axilla into the neck slightly improved from yesterday. There are surgical clips in the hilum and suprahilar region from previous chest surgery. Bones without acute compression deformity of focal lesion. Impression: 1. Two right apex chest tubes without pneumothorax. Small left effusion. No definite effusion on the right. No other finding or interval change. Signed by Howie Dickerson MD 11/19/2016 05:15 P
[2016-11-19 13:22] VITALS: BP 103/57
--- NOTE | 2016-11-19 13:27 | IPN ---
DATE: This is now the third postoperative day for Mrs. Akhtar. She had a migraine headache last night for which she underwent treatment. She also awoke with increased incisional pain, but that is now dissipated with Toradol. Her vital signs show a maximum temperature (Tmax) of 99.1, with a heart rate that ranges between 92-116 in a sinus rhythm, respiratory rate of 22-16 without the use of accessory muscles, who is 96% saturated on 1 liter nasal cannula and whose blood pressure is ranging now between 98/57 to 81/49. Her intake and output the past 24 hours has been recorded as 2200 in and 3160 out for a negativity of approximately a liter. She has put out 375 mL from the chest tube. There is still an air leak. She weighs 45.3 kg today compared to 45.1 kg yesterday. Early this morning, I gave her a 500 mL bolus of fluid. On physical examination, her lungs show equal breath sounds on either side. I do not hear any wheezing. Percussion note is full to the diaphragm. Cardiac exam is without murmurs, clicks, gallops, or rubs. I cannot feel her point of maximum impulse (PMI). S1, S2 are normal. Abdomen: Soft. Nontender. Bowel sounds are positive. There is no hepatomegaly. No costovertebral angle (CVA) tenderness. Extremities: Show no pretibial edema. No calf tenderness. No differential swelling of the upper extremities. Skin is warm, dry and perfused. Without cyanosis or mottling, including that of the nail beds and knees. Neck is supple. There is jugular venous distention. No subcutaneous emphysema. Trachea is midline. Mouth: Shows her mucous membranes to be pink and moist. Lips and commissures are without lesions. There is no thrush. Eyes: Show her pupils to be equal and reactive. Extraocular movements intact. Sclerae nonicteric. Neurologic: Shows II-XII intact along with gross motor and gross sensation intact. Gait is not tested. Psychiatric shows her to be awake, alert, and oriented times three with appropriate mood and affect and conversational. Her white count today is 7.0 with hemoglobin and hematocrit of 9.9 and 29.6, probably secondary to hemoconcentration. Platelet count is 171 with a differential that shows 73% neutrophils, 14% lymphocytes and 3% monocytes. There are no immature forms and no toxic granulations. Her electrolytes are normal with a BUN and creatinine of 13 and 0.83, a glucose of 105 and a calcium 7.9. Her chest x-ray today again shows her lung fully expanded to the chest wall. The subcutaneous emphysema I think is dissipating but still present. It is not as far up the neck as it was. Chest tubes are in good place. Costophrenic angles are sharp on the right. However, there is a small pleural effusion on the left side. IMPRESSION: 1. Postoperative day #3 status post right upper lobectomy. 2. Chronic obstructive pulmonary disease (COPD). 3. Adenocarcinoma, final staging still pending pathology. 4. Alveolar pleural fistula. 5. Migraine headaches. 6. Status post seizure in the remote past. PLAN AND DISCUSSION: I will transfer her to the progressive care unit (PCU) today. I have turned her chest tube suction down to 20. I will not diurese her today as she is a liter ahead of us.
[2016-11-19 16:00] VITALS: BP 102/60
[2016-11-19 20:00] VITALS: BP 104/60
[2016-11-19] MEDS: FENTANYL/BUPIVACAINE/NACL CADD 250 ML EPIDURAL SCH (20:42)
[2016-11-20 00:45] VITALS: BP 94/67
[2016-11-20] MEDS: LEVALBUTEROL 1.25 MG/0.5 ML CONCENTRATE NEB NEB SCH ×4 (02:00→21:12)
[2016-11-20] MEDS: KETOROLAC 30 MG/ML VIAL (J1885) IV SCH ×3 (03:36→14:41)
[2016-11-20 04:00] VITALS: BP 96/57
[2016-11-20] MEDS: SLF 3 ML SYR IV SCH ×3 (05:22→21:52)
[2016-11-20 05:33] LABS: BASO % 0.2 % (0.0-1.0); EOS # 0.6 K/mm3 (0.0-0.50); EOS % 10.5 % (0.0-3.0); LARGE UNSTAINED CELL # 0.1 K/mm3 (0.0-0.4); LARGE UNSTAINED CELL % 1.3 % (0.0-4.0); LYMPH # 1.1 K/mm3 (1.5-4.5); LYMPH % 17.1 % (24.0-44.0); MEAN CORPUSCULAR HEMOGLOBIN 28.9 pg (27.0-33.0); MEAN CORPUSCULAR HGB CONC 32.6 g/dl (32.0-36.5); MEAN CORPUSCULAR VOLUME 88.7 fl (80.0-96.0); MONO # 0.3 K/mm3 (0.0-0.8); MONO % 5.3 % (0.0-5.0); NEUTROPHILS # 3.9 K/mm3 (1.8-7.7); NEUTROPHILS % 65.6 % (36.0-66.0); PLATELET COUNT, AUTOMATED 237 k/mm3 (150-450); RED CELL DISTRIBUTION WIDTH 13.2 % (11.5-14.5); WHITE BLOOD COUNT 5.9 K/mm3 (4.0-10.0)
[2016-11-20 05:50] LABS: ANION GAP 9 MEQ/L (8-16); BLOOD UREA NITROGEN 14 MG/DL (7-18); CALCIUM LEVEL 7.4 MG/DL (8.8-10.2); CARBON DIOXIDE LEVEL 25 MEQ/L (21-32); CHLORIDE LEVEL 109 MEQ/L (98-107); CREATININE FOR GFR 0.74 MG/DL (0.55-1.02); GLOMERULAR FILTRATION RATE > 60.0 (>45); GLUCOSE, FASTING 102 MG/DL (80-110); POTASSIUM SERUM 3.9 MEQ/L (3.5-5.1); SODIUM LEVEL 143 MEQ/L (136-145)
[2016-11-20 07:35] VITALS: BP 107/60
[2016-11-20] MEDS: MOM 30ML SUSPENSION UDC PO SCH (08:38)
[2016-11-20] MEDS: PANTOPRAZOLE 40MG TAB (PROTONIX) PO SCH (08:39)
[2016-11-20] MEDS: DOCUSATE SODIUM 100 MG CAP PO SCH ×2 (08:39→21:50)
[2016-11-20] MEDS: HEPARIN SOD (PORCINE) 5000 UNITS/ML VIAL SC SCH ×2 (08:39→21:51)
--- NOTE | 2016-11-20 09:24 | IPN ---
DATE: 11/19/2016 This is now the fourth postoperative day for Mrs. Akhtar. She has had a stable 24 hours and in fact is actually asking to go home. Her vital signs show a maximum temperature (Tmax) of 98.7, with a heart rate that ranges between 94 and 111 in a sinus rhythm, respiratory rate of 22 to 27 without the use of accessory muscles, who is 94 to 96% saturated on 2 liters nasal cannula. Blood pressure is ranging between 112/68 to 102/59. Her intake and output the past 24 hours has been recorded as 1344 in and 1115 out for a positivity of 230 mL. She has put out 100 mL from the chest tube and there is no air leak today. Weight today is 44.9 kg compared to 45.3 kg yesterday. PHYSICAL EXAMINATION LUNGS: Her lungs show equal breath sounds on either side. I do not hear any wheezing, but there are some coarse rhonchi. Percussion note is full to the diaphragm. CARDIAC: Cardiac exam is without murmurs, clicks, gallops, or rubs. I cannot feel her point of maximum impulse (PMI). S1, S2 are normal. ABDOMEN: Soft. Nontender. Bowel sounds are positive. There is no hepatomegaly. No costovertebral angle (CVA) tenderness. EXTREMITIES: Show no pretibial edema. No calf tenderness. No differential swelling of the upper extremities. SKIN: Warm, dry and perfused. Without cyanosis or mottling, including that of the nail beds and knees. NECK: Supple. There is jugular venous distention. No subcutaneous emphysema today. Trachea is midline. MOUTH: Shows her mucous membranes to be pink and moist. Lips and commissures are without lesions. There is no thrush. EYES: Show her pupils to be equal and reactive. Extraocular movements intact. Sclerae nonicteric. NEUROLOGIC: Shows II-XII intact along with gross motor and gross sensation intact. Gait is not tested. PSYCHIATRIC: Shows her to be awake, alert, and oriented times three with appropriate mood and affect and conversational. Her electrolytes are normal today with a BUN and creatinine of 12 and 0.84, glucose of 125 and a calcium of 7.9. White count today is 6.8 with a hemoglobin and hematocrit of 9.4 and 28.4, slightly down from yesterday of 9 and 29.6. Platelet count is 209 and stable. Differential shows 76% neutrophils, 9% lymphocytes, 3% monocytes. There are no immature forms and no toxic granulations. There are no blood gases on her today. Her chest x-ray today shows the lung fully expanded to the chest wall. She looks to have a bit more of an infiltrative pattern in the remaining middle lobe superiorly. Chest tubes are in good place. Costophrenic angle on the right is sharp, on the left she still shows a pleural effusion, which is unchanged from yesterday. IMPRESSION: 1. Postoperative day #4 status post right upper lobectomy. 2. Adenocarcinoma, T1a N0M0 or stage 1a. 3. Chronic obstructive pulmonary disease (COPD). 4. Alveolar pleural fistula, resolved. 5. Migraine headaches. 6. Status post seizure in the remote past. PLAN AND DISCUSSION: I will discontinue her chest tube from suction today. I will not diurese her today. If all goes well, I will remove her chest tubes tomorrow and plan for a discharge on Saturday.
--- NOTE | 2016-11-20 10:03 | REP ---
Clinical: Follow up pleural effusion. Technique: PA and lateral. Comparison: 11/19/2016. Findings: Two right apical chest tubes are stable. Diffuse bilateral pleuroparenchymal changes and subcutaneous emphysema along the right hemithorax are essentially unchanged. Visualized mediastinum and cardiac silhouette stable. Skeletal structures intact. Impression: No significant change from prior examination. Signed by Felix Lee MD 11/20/2016 09:55 A
[2016-11-20] MEDS: PERCOCET 5MG/325MG TAB PO PRN ×3 (11:57→21:51)
[2016-11-20 12:00] VITALS: BP 105/57
[2016-11-20] MEDS: NYSTATIN 500,000 U/5 ML SUSP UDC SS SCH ×3 (14:42→21:51)
[2016-11-20 16:05] VITALS: BP 106/54
--- NOTE | 2016-11-20 16:49 | IPN ---
DATE: 11/20/2016 This is now the fifth postoperative day for Mrs. Akhtar. She is doing well and her pain is really well controlled. Her chest tube has no air leak and has minimal output and I will discontinue it today. Her vital signs show a maximum temperature (Tmax) of 96.8, with a heart rate that ranges between 96 and 109 in a sinus rhythm, respiratory rate of 18 to 21 without the use of accessory muscles, who is 92 to 94% saturated now on room air. Blood pressures is ranging between 94/67 and 107/60. Her intake and output the past 24 hours has been recorded as 772 in and 410 out for a positivity of 362 mL. She states that she is eating well however, which does not correspond with the oral intake of 700 mL. Chest tube put out 180 mL and there is no air leak. She weighs 43.1 kg compared to 44.9 kg yesterday. PHYSICAL EXAMINATION LUNGS: Her lungs show equal breath sounds on either side. I hear no wheezing, rhonchi, or rales. She has normal vesicular sounds. Percussion is full to the diaphragm. CARDIAC: Cardiac exam is without murmurs, clicks, gallops, or rubs. I cannot feel her point of maximum impulse (PMI). S1, S2 are normal. ABDOMEN: Soft. Nontender. Bowel sounds are positive. There is no hepatomegaly. No costovertebral angle (CVA) tenderness. EXTREMITIES: Show no pretibial edema. No calf tenderness. No differential swelling of the upper extremities. SKIN: Warm, dry and perfused. Without cyanosis or mottling, including that of the nail beds and knees. NECK: Supple. There is jugular venous distention. No subcutaneous emphysema today. Trachea is midline. MOUTH: Shows her mucous membranes to be pink and moist. Lips and commissures are without lesions. There is no thrush. EYES: Show her pupils to be equal and reactive. Extraocular movements intact. Sclerae nonicteric. NEUROLOGIC: Shows II-XII intact along with gross motor and gross sensation intact. Gait is not tested. PSYCHIATRIC: Shows her to be awake, alert, and oriented times three with appropriate mood and affect and conversational. Her white count today is 5.9 with a hemoglobin and hematocrit of 9.1 and 28.0, slightly down from 9.4 and 28.4 yesterday. Platelet count is 237. Differential shows 65% neutrophils, 17% lymphocytes, 5% monocytes. There are no immature forms and no toxic granulations. Her electrolytes are normal with a BUN and creatinine of 14 and 0.74, glucose 102, and a calcium of 7.4. Her chest x-ray today shows her lung fully expanded to the chest wall. Subcutaneous emphysema is dissipating. There looks to be a slight infiltrative pattern in the remaining middle lobe. Chest tubes are in good place. She still has the left pleural effusion. IMPRESSION: 1. Postoperative day #5 status post right upper lobectomy. 2. Stage 1a adenocarcinoma, T1a N0M0. 3. Chronic obstructive pulmonary disease (COPD). 4. Alveolar pleural fistula, resolved. 5. Migraine headaches. 6. Status post seizure in the remote past. PLAN AND DISCUSSION: I will discontinue her chest tube today. We will plan to sed her home tomorrow. I will have another hep-lock placed in her just in case we need quick access.
[2016-11-20 20:00] VITALS: BP 137/59
[2016-11-21] VITALS: BP 126/70
[2016-11-21] MEDS: LEVALBUTEROL 1.25 MG/0.5 ML CONCENTRATE NEB NEB SCH ×2 (01:29→07:34)
[2016-11-21] MEDS: PERCOCET 5MG/325MG TAB PO PRN ×2 (03:16→06:54)
[2016-11-21 04:00] VITALS: BP 114/62
[2016-11-21] MEDS: SLF 3 ML SYR IV SCH (06:00)
[2016-11-21 06:07] LABS: BASO % 0.2 % (0.0-1.0); EOS # 0.6 K/mm3 (0.0-0.50); EOS % 7.6 % (0.0-3.0); LARGE UNSTAINED CELL # 0.1 K/mm3 (0.0-0.4); LARGE UNSTAINED CELL % 1.4 % (0.0-4.0); LYMPH # 0.9 K/mm3 (1.5-4.5); LYMPH % 11.3 % (24.0-44.0); MEAN CORPUSCULAR HEMOGLOBIN 28.8 pg (27.0-33.0); MEAN CORPUSCULAR HGB CONC 32.6 g/dl (32.0-36.5); MEAN CORPUSCULAR VOLUME 88.4 fl (80.0-96.0); MONO # 0.4 K/mm3 (0.0-0.8); MONO % 4.8 % (0.0-5.0); NEUTROPHILS # 5.5 K/mm3 (1.8-7.7); NEUTROPHILS % 74.7 % (36.0-66.0); PLATELET COUNT, AUTOMATED 295 k/mm3 (150-450); RED CELL DISTRIBUTION WIDTH 13.3 % (11.5-14.5); WHITE BLOOD COUNT 7.4 K/mm3 (4.0-10.0)
[2016-11-21 06:26] LABS: ANION GAP 6 MEQ/L (8-16); BLOOD UREA NITROGEN 12 MG/DL (7-18); CALCIUM LEVEL 8.4 MG/DL (8.8-10.2); CARBON DIOXIDE LEVEL 28 MEQ/L (21-32); CHLORIDE LEVEL 108 MEQ/L (98-107); CREATININE FOR GFR 0.76 MG/DL (0.55-1.02); GLOMERULAR FILTRATION RATE > 60.0 (>45); GLUCOSE, FASTING 99 MG/DL (80-110); POTASSIUM SERUM 4.1 MEQ/L (3.5-5.1); SODIUM LEVEL 142 MEQ/L (136-145)
[2016-11-21] MEDS: MOM 30ML SUSPENSION UDC PO SCH (07:56)
[2016-11-21] MEDS: NYSTATIN 500,000 U/5 ML SUSP UDC SS SCH (07:57)
[2016-11-21] MEDS: DOCUSATE SODIUM 100 MG CAP PO SCH (07:57)
[2016-11-21] MEDS: HEPARIN SOD (PORCINE) 5000 UNITS/ML VIAL SC SCH (07:57)
[2016-11-21] MEDS: PANTOPRAZOLE 40MG TAB (PROTONIX) PO SCH (07:57)
[2016-11-21 08:00] VITALS: BP 149/71
[2016-11-21] MEDS ORDERED: PERCOCET PO (08:12)
[2016-11-21] MEDS ORDERED: NYST50SS SS (08:12)
--- NOTE | 2016-11-21 09:13 | REP ---
CHEST PA AND LATERAL: 11/21/2016 CLINICAL HISTORY: Pleural effusion. Chest tubes removal. FINDINGS: The two-views show the two right upper lung zone chest tubes are now removed. There are some bullous changes in the upper lung zone, but no definite pneumothorax or air-fluid level. There are no new infiltrates. Surgical clips in the region of the right hilum and mediastinum with elevation of the hilum and some patchy atelectasis or infiltrate in the right medial suprahilar region. Left lung is well inflated and clear. Small effusions suspected. Heart is not enlarged. There is no pulmonary edema. The aorta is without aneurysm. Airway midline. The bony thorax shows no compression deformity or focal lesion. IMPRESSION: 1. Postsurgical changes right hilum and suprahilar region with subsegmental atelectasis or infiltrate in the suprahilar region on the right. The two right chest tubes have been removed without definite pneumothorax on the frontal view. Subcutaneous emphysema in the chest wall on the right side superimposed on the lateral view of the chest, limiting evaluation of the mediastinum on that lateral projection. 2. No cardiomegaly without pulmonary edema. 3. There is a small effusion suspected on the left, trace on the right. Signed by Howie Dickerson MD 11/21/2016 08:15 P
--- NOTE | 2016-11-21 17:11 | DSES ---
DATE OF ADMISSION: 11/15/2016 DATE OF DISCHARGE: 11/21/2016 DISCHARGE DIAGNOSES: 1. Stage IA adenocarcinoma right upper lobe T1N0M0. 2. Postoperative day #5, status post right upper lobectomy. 3. Chronic obstructive pulmonary disease. 4. Alveolar pleural fistula, resolved. 5. Migraine headaches. 6. Status post seizures in the remote past. HOSPITAL COURSE: The patient is a 61-year-old white female, who was noted to have a right upper lobe lesion. It was biopsied and without results. She was, therefore, taken to the operating room, where she underwent a wedge resection of the right upper lobe, which showed it to be adenocarcinoma, which was then followed by a right upper lobectomy. She had an alveolar pleural fistula postoperatively, quite large in the first couple days, which then resolved itself. Her subcutaneous emphysema extended up to her neck but which thereafter resolved and dissipated. Her chest tubes were removed on the 4th postoperative day. Her chest x-ray on discharge showed the lung fully expanded to the chest wall with minimal subcutaneous emphysema. She is being discharged today on Nystatin 5 mL swish and swallow, Percocet 5/325 every 4 hours as needed pain, and her preoperative medication for her migraine headaches, sumatriptan 50 mg as needed headaches. She will return to see me in 1 week with a chest x-ray. Her discharge hemoglobin and hematocrit are 9.3 and 28.9 with a discharge white count of 7.4. Discharge BUN and creatinine are 12 and 0.76 with normal electrolytes. Her chest x-ray shows her lung fully expanded to the chest wall. As she is stage IA disease, she will not need further chemotherapy.
== END 2016-11-21 09:16 | disposition home or self-care (01) | DRG 120 ==
LOC: M OR 06:35 → M ICU 18:24 → M PCU 11-20 00:46
PROVIDERS: ADMIT Thoracic Surgery (Cardiothoracic Vascular Surgery); ATTEND Thoracic Surgery (Cardiothoracic Vascular Surgery)
PROC: 0BBC4ZX Excision of Right Upper Lung Lobe, Percutaneous Endoscopic Approach, Diagnostic (ICD-10-PCS; 2016-11-15)
PROC: 0WBC0ZZ Excision of Mediastinum, Open Approach (ICD-10-PCS; 2016-11-15)
PROC: 30253N1 (ICD-10-PCS; 2016-11-15)
PROC: 0BTC0ZZ Resection of Right Upper Lung Lobe, Open Approach (ICD-10-PCS; principal; 2016-11-15 09:00)
DX: C34.11 Malignant neoplasm of upper lobe, right bronchus or lung (principal); J86.0 Pyothorax with fistula; J44.9 Chronic obstructive pulmonary disease, unspecified; G43.709 Chronic migraine without aura, not intractable, without status migrainosus; J90 Pleural effusion, not elsewhere classified; Z87.891 Personal history of nicotine dependence; Z88.0 Allergy status to penicillin; Z79.899 Other long term (current) drug therapy; R63.4 Abnormal weight loss; Z68.1 Body mass index [BMI] 19.9 or less, adult

== ENCOUNTER → 2016-12-03 | Outpatient (CLI) | payer OTHER ==
[~2016-12-03] MED LIST changes: +NYST50SS SS
--- NOTE | 2016-12-03 10:49 | REP ---
Chest x-ray: Two views. History: Solitary pulmonary nodule. Comparison chest x-ray November 21, 2016. Findings: The patient is status post right thoracotomy and partial pneumonectomy with clips and sutures in the right perihilar region. There is a little right apical pleural thickening. No definite pneumothorax or hydrothorax is seen. The left lung remains clear. The heart size is normal. No bony abnormality is seen. Impression: Satisfactory postoperative chest x-ray. Signed by Ihsan Briggs MD 12/03/2016 02:28 P
== END ==
LOC: M SMT 09:36
PROVIDERS: ATTEND Thoracic Surgery (Cardiothoracic Vascular Surgery)
DX: R91.1 Solitary pulmonary nodule (principal); Z90.2 Acquired absence of lung [part of]

== ENCOUNTER → 2016-12-10 | Outpatient (CLI) | payer OTHER ==
--- NOTE | 2016-12-11 02:09 | REP ---
Clinical: Right-sided chest pain. Technique: PA and lateral. Comparison: 11/21/2016. Findings: Chronic and postsurgical changes are appreciated and similar to prior examination. No obvious acute opacity, effusion, or pneumothorax. Mediastinum and cardiac silhouette stable. Skeletal structures intact. Impression: Chronic/postsurgical type changes similar to prior examination. If the patient remains symptomatic consider chest CT for further investigation. Signed by Felix Lee MD 12/11/2016 02:00 A
== END ==
LOC: M SMT 11:22
PROVIDERS: ATTEND Thoracic Surgery (Cardiothoracic Vascular Surgery)
DX: C34.11 Malignant neoplasm of upper lobe, right bronchus or lung (principal); Z79.890 Hormone replacement therapy

== ENCOUNTER 2016-12-15 07:57 | Emergency (ER) | payer OTHER ==
[~2016-12-15] VITALS: Ht 157.5 cm; Wt 40.8 kg
[~2016-12-15 07:57] MED LIST changes: +OXYC1TAB23 PO
[2016-12-15 08:09] VITALS: BP 127/61
[2016-12-15] MEDS ORDERED: ONDA4TAB6 (08:23)
[2016-12-15] MEDS ORDERED: SUMA100T2 (08:23)
[2016-12-15] MEDS ORDERED: KETOROLAC 30 MG/ML VIAL (J1885) IV ONE (09:30)
[2016-12-15] MEDS ORDERED: METOCLOPRAMIDE INJ 10MG/2ML VIAL (J2765) IV ONE (09:30)
[2016-12-15] MEDS ORDERED: NS 1,000 ML IV ONE (09:30)
[2016-12-15] MEDS ORDERED: diphenhydrAMINE INJ 50MG/ML VIAL (J1200) IV ONE (09:30)
== END 2016-12-15 11:59 | disposition home or self-care (01) ==
LOC: EDBD 07:57 → M ED 09:49
DX: G43.909 Migraine, unspecified, not intractable, without status migrainosus (principal)
CPT/HCPCS: 96374; 96375; 99282; J1200; J1885; J2765

== ENCOUNTER → 2017-01-31 | Outpatient (CLI) | payer OTHER ==
[~2017-01-31] MED LIST changes: +ONDA4TAB6; +SUMA100T2
--- NOTE | 2017-02-01 02:58 | REP ---
Clinical: History of lung cancer. Technique: PA and lateral. Comparison: 12/10/2016. Findings: Mediastinum and cardiac silhouette are stable. Lung pulliam demonstrate diffuse chronic interstitial changes and elements of fibrosis/scarring. No focal consolidation, effusion, or pneumothorax. Skeletal structures demonstrate age-related osteopenia and degenerative changes. Impression: Chronic interstitial changes similar to prior examination. No obvious acute cardiopulmonary process identified. Signed by Felix Lee MD 02/01/2017 02:50 A
== END ==
LOC: M SMT 09:35
PROVIDERS: ATTEND Thoracic Surgery (Cardiothoracic Vascular Surgery)
DX: C34.11 Malignant neoplasm of upper lobe, right bronchus or lung (principal)

== ENCOUNTER → 2017-11-01 | Outpatient (CLI) | payer OTHER ==
[2017-11-01 14:46] LABS: BASO # 0.1 10^3/uL (0.0-0.2); BASO % 0.8 % (0.0-1.0); EOS # 0.2 10^3/uL (0.0-0.50); EOS % 1.8 % (0.0-3.0); HEMATOCRIT 45.5 % (36.0-47.0); HEMOGLOBIN 15.1 g/dl (12.0-16.0); IMMATURE GRANULOCYTE % 0.2 % (0-0); LYMPH # 2.8 10^3/uL (1.5-4.5); LYMPH % 30.8 % (24.0-44.0); MEAN CORPUSCULAR HGB CONC 33.2 g/dl (32.0-36.5); MEAN CORPUSCULAR VOLUME 87.3 fl (80.0-96.0); MONO # 0.6 10^3/uL (0.0-0.8); MONO % 6.5 % (0.0-5.0); NEUTROPHILS # 5.4 10^3/uL (1.8-7.7); NEUTROPHILS % 59.9 % (36.0-66.0); PLATELET COUNT, AUTOMATED 343 10^3/uL (150-450); RED BLOOD COUNT 5.21 10^6/uL (4.00-5.40); RED CELL DISTRIBUTION WIDTH 13.4 % (11.5-14.5)
[2017-11-01 15:08] LABS: ALBUMIN 4.2 GM/DL (3.2-5.2); ALKALINE PHOSPHATASE 86 U/L (45-117); ALT/SGPT 25 U/L (12-78); ANION GAP 5 MEQ/L (8-16); AST/SGOT 18 U/L (7-37); BILIRUBIN,TOTAL 0.3 MG/DL (0.2-1.0); BLOOD UREA NITROGEN 16 MG/DL (7-18); CALCIUM LEVEL 9.6 MG/DL (8.8-10.2); CARBON DIOXIDE LEVEL 28 MEQ/L (21-32); CHLORIDE LEVEL 106 MEQ/L (98-107); CREATININE FOR GFR 0.95 MG/DL (0.55-1.30); GLOMERULAR FILTRATION RATE > 60.0 (>45); GLUCOSE, FASTING 95 MG/DL (70-100); POTASSIUM SERUM 4.2 MEQ/L (3.5-5.1); SODIUM LEVEL 139 MEQ/L (136-145); TOTAL PROTEIN 7.7 GM/DL (6.4-8.2)
== END ==
LOC: M RAD 14:02
DX: K21.0 Gastro-esophageal reflux disease with esophagitis (principal)
CPT/HCPCS: 71250

== ENCOUNTER → 2017-12-06 | Outpatient (CLI) | payer OTHER ==
[~2017-12-06] MED LIST changes: -ACET65TA; -DILA100C; +ISOVUE-370 76% 100ML VIAL (Q9967) As Ordered; -NYST50SS SS; -ONDA4TAB6; -OXYC1TAB23 PO; -PERCOCET PO; -SUMA100T2; -SUMA50TA2 PO
== END ==
LOC: M RAD 13:00
DX: R59.0 Localized enlarged lymph nodes (principal)
CPT/HCPCS: Q9967

== ENCOUNTER → 2018-01-13 | Outpatient (REF) | payer OTHER | LOC: M LAB REF 16:34 | DX: D37.030 Neoplasm of uncertain behavior of the parotid salivary glands (principal) ==

== ENCOUNTER → 2018-01-13 | Outpatient (REF) | payer OTHER | LOC: M LAB REF 17:21 | DX: D37.030 Neoplasm of uncertain behavior of the parotid salivary glands (principal) ==

== ENCOUNTER → 2018-02-28 | Outpatient (CLI) | payer OTHER | LOC: M WHC 10:41 | DX: M85.9 Disorder of bone density and structure, unspecified (principal) | CPT/HCPCS: 77080 ==

== ENCOUNTER → 2019-03-31 | Outpatient (CLI) | payer OTHER ==
[~2019-03-31] MED LIST changes: +ACET65TA; +DILA100C; -ISOVUE-370 76% 100ML VIAL (Q9967) As Ordered; +MACR100C43 PO; +NYST50SS SS; +ONDA4TAB6; +OXYC1TAB23 PO; +PERCOCET PO; +SUMA100T2; +SUMA50TA2 PO
--- NOTE | 2019-03-31 14:49 | REP ---
Clinical: Lung screening. History smoking. Comparison: 11/01/2017 Technique: Axial low-dose noncontrast images from the thoracic inlet to the upper abdomen using lung screening technique. Findings: The lung pulliam demonstrate moderate/advanced COPD and emphysematous changes along with evidence for prior right upper lobectomy. No acute consolidation, significant nodule or mass lesion is appreciated. No pleural effusion/reaction or pneumothorax. Tracheobronchial tree is patent. Mediastinum demonstrates postsurgical changes along the right hilum. Impression: Lung-RADS category I-C. Postsurgical changes related to prior lung cancer. No obvious nodule or mass. Electronically Signed by Felix Lee MD 03/31/2019 02:40 P
== END ==
LOC: M RAD 13:40
PROVIDERS: ATTEND Internal Medicine
DX: Z12.2 Encounter for screening for malignant neoplasm of respiratory organs (principal); G43.719 Chronic migraine without aura, intractable, without status migrainosus; F17.209 Nicotine dependence, unspecified, with unspecified nicotine-induced disorders; Z90.2 Acquired absence of lung [part of]; Z85.118 Personal history of other malignant neoplasm of bronchus and lung; J43.9 Emphysema, unspecified

== ENCOUNTER 2019-06-26 09:56 | Emergency (ER) | payer OTHER ==
[~2019-06-26] VITALS: Ht 157.5 cm; Wt 36.8 kg
[~2019-06-26 09:56] MED LIST changes: -MACR100C43 PO
--- NOTE | 2019-06-26 13:20 | REP ---
CT ABDOMEN AND PELVIS WITHOUT CONTRAST: CT abdomen and pelvis performed without oral or IV contrast. Sagittal and coronal reconstruction images are performed. Visualized lung bases demonstrate no infiltrate. The liver, spleen, adrenals, pancreas, and kidneys are grossly unremarkable. I see no evidence of renal or ureteral calculus. There is no bladder calculus. There is no hydroureteronephrosis. There is calcification of the abdominal aorta without aneurysm. No gross adenopathy is seen. There is no free air or free fluid. There is sigmoid diverticulosis with no gross diverticulitis. There is no gross pelvic mass. I cannot visualize the appendix. Urinary bladder is not distended and not evaluated. IMPRESSION: No definite acute abnormality. No renal, ureteral or bladder calculus and no hydroureteronephrosis. No definite free air or free fluid. I cannot visualize the appendix. Electronically Signed by Levon Gibbons MD 06/26/2019 04:41 P
[2019-06-26] MEDS ORDERED: MACR100C43 PO (14:05)
[2019-06-26 14:22] VITALS: BP 128/75
== END 2019-06-26 14:25 | disposition home or self-care (01) ==
LOC: M ED 09:56
DX: N39.0 Urinary tract infection, site not specified (principal); G40.909 Epilepsy, unspecified, not intractable, without status epilepticus; J44.9 Chronic obstructive pulmonary disease, unspecified; G43.909 Migraine, unspecified, not intractable, without status migrainosus; F17.210 Nicotine dependence, cigarettes, uncomplicated; F12.90 Cannabis use, unspecified, uncomplicated; Z88.0 Allergy status to penicillin; Z88.5 Allergy status to narcotic agent; Z79.899 Other long term (current) drug therapy

== ENCOUNTER → 2019-07-06 | Outpatient (REF) | payer OTHER ==
[~2019-07-06] MED LIST changes: +MACR100C43 PO
[2019-07-06 18:55] LABS: APPEARANCE, URINE CLEAR (CLEAR); BACTERIA, URINE AUTO NEGATIVE (NEGATIVE); BILIRUBIN, URINE AUTO NEGATIVE (NEGATIVE); BLOOD, URINE BLOOD 1+ (NEGATIVE); COLOR, URINE YELLOW (YELLOW); GLUCOSE, URINE (UA) AUTO NEGATIVE (NEGATIVE); KETONE, URINE AUTO NEGATIVE (NEGATIVE); LEUKOCYTE ESTERASE, URINE AUTO NEGATIVE (NEGATIVE); MUCUS, URINE SMALL (NEGATIVE); NITRITE, URINE AUTO NEGATIVE (NEGATIVE); PROTEIN, URINE AUTO NEGATIVE (NEGATIVE); RBC, URINE AUTO 5 /HPF (0-3); SPECIFIC GRAVITY URINE AUTO 1.012 (1.002-1.035); SQUAMOUS EPITHELIAL CELL UR AU 0 /HPF (0-6); UROBILINOGEN, URINE AUTO 0.2 mg/dL (0.0-2.0); WBC, URINE AUTO 1 /HPF (0-3)
== END ==
LOC: M SMT 17:20
PROVIDERS: ATTEND Nurse Practitioner Family
DX: N39.0 Urinary tract infection, site not specified (principal)

== ENCOUNTER → 2021-08-07 | Outpatient (CLI) | payer MEDICARE, MEDICAID ==
--- NOTE | 2021-08-08 14:00 | REP ---
INDICATION: RESTAGING ADENOCARCINOMA. COMPARISON: None. TECHNIQUE: Following the injection of 8.2 mCi of FDG-18 scan from the head through the mid thighs were obtained. FINDINGS: An area of intense uptake is seen in the mediastinum below the emily in jen station 7 with a maximum SUV of 5.6. This is consistent with a metastatic node. No other abnormal area of uptake is identified. IMPRESSION: Focal area of hypermetabolism in the mediastinum in jen station 7 consistent with a metastatic lymph node. Two. No other area of abnormal uptake is identified. <Electronically signed by Satya Vanegas > 08/08/21 [id number]
== END ==
LOC: M PLARAD 12:22
PROVIDERS: ATTEND Internal Medicine Pulmonary Disease
DX: C34.11 Malignant neoplasm of upper lobe, right bronchus or lung (principal)
CPT/HCPCS: 78815; A9552

== ENCOUNTER → 2021-08-23 | Outpatient (CLI) | payer MEDICARE, MEDICAID ==
[~2021-08-23] MED LIST changes: -SUMA100T2; +SUMA100T2 PO; +TREL1AER INH; +VENTAER INH
== END ==
LOC: M LABSMTC 10:59
PROVIDERS: ATTEND Anesthesiology
DX: Z01.812 Encounter for preprocedural laboratory examination (principal); Z20.822 Contact with and (suspected) exposure to COVID-19

== ENCOUNTER 2021-08-28 09:42 | Day surgery (SDC) | payer MEDICARE, MEDICAID ==
[~2021-08-28] VITALS: Ht 157.5 cm; Wt 34.4 kg
[~2021-08-28 09:42] MED LIST changes: +LR 1,000 ML IV ONE
[2021-08-28] MEDS ORDERED: ROCURONIUM BROMIDE 50 MG/5 ML VIAL As Ordered ONE (10:12)
[2021-08-28] MEDS ORDERED: LIDOCAINE 2% 100MG/5ML SDV (FOR ANES.) As Ordered ONE (10:12)
[2021-08-28] MEDS ORDERED: fentaNYL 100 MCG/2 ML INJECTION As Ordered ONE (10:12)
[2021-08-28] MEDS ORDERED: propofoL 200 MG/20 ML VIAL As Ordered ONE (10:12)
[2021-08-28] MEDS ORDERED: MIDAZOLAM INJ 2MG/2ML VIAL (J2250 PER 1MG) As Ordered ONE (10:13)
[2021-08-28] MEDS ORDERED: BUPIVACAINE/EPIN 0.5% 30 ML VIAL As Ordered ONE (10:36)
[2021-08-28 11:00] LABS: HEMATOCRIT 45.7 % (36.0-47.0); HEMOGLOBIN 14.8 g/dl (12.0-15.5); MEAN CORPUSCULAR HEMOGLOBIN 29.2 pg (27.0-33.0); MEAN CORPUSCULAR HGB CONC 32.4 g/dl (32.0-36.5); MEAN CORPUSCULAR VOLUME 90.1 fl (80.0-96.0); PLATELET COUNT, AUTOMATED 294 10^3/uL (150-450); RED BLOOD COUNT 5.07 10^6/uL (4.00-5.40); WHITE BLOOD COUNT 6.7 10^3/uL (4.0-10.0)
[2021-08-28 11:22] LABS: CALCIUM LEVEL 9.8 MG/DL (8.8-10.2); CREATININE FOR GFR 1.04 MG/DL (0.55-1.30); GLOMERULAR FILTRATION RATE 56.3 (>45); POTASSIUM SERUM 4.4 MEQ/L (3.5-5.1)
[2021-08-28] MEDS ORDERED: ePHEDrine SULFATE 25 MG/5 ML(5MG/ML) SYRINGE As Ordered ONE (11:36)
[2021-08-28] MEDS ORDERED: dexameTHASONE 4 MG/ML 1ML VIAL (J1100 PER 1MG) As Ordered ONE (11:39)
[2021-08-28] MEDS ORDERED: ONDANSETRON 4MG/2ML VIAL As Ordered ONE (11:39)
[2021-08-28] MEDS ORDERED: LR 1,000 ML IV SCH ×2 (12:25→12:30)
[2021-08-28] MEDS ORDERED: fentaNYL 100 MCG/2 ML INJECTION IV PRN (12:25)
[2021-08-28] MEDS ORDERED: ONDANSETRON 4MG/2ML VIAL IV PRN ×2 (12:25→12:30)
[2021-08-28] MEDS ORDERED: ACETAMINOPHEN/CODEINE 300MG/30MG 12.5 ML UDC PO PRN (12:30)
[2021-08-28 14:20] VITALS: BP 100/67
== END 2021-08-28 15:04 | disposition home or self-care (01) ==
LOC: M SDC 09:42
PROVIDERS: ATTEND Otolaryngology
DX: J35.01 Chronic tonsillitis (principal); Z85.89 Personal history of malignant neoplasm of other organs and systems; Z85.118 Personal history of other malignant neoplasm of bronchus and lung; M10.9 Gout, unspecified; K21.9 Gastro-esophageal reflux disease without esophagitis; J44.9 Chronic obstructive pulmonary disease, unspecified; F17.218 Nicotine dependence, cigarettes, with other nicotine-induced disorders; F12.10 Cannabis abuse, uncomplicated; G43.909 Migraine, unspecified, not intractable, without status migrainosus; G40.909 Epilepsy, unspecified, not intractable, without status epilepticus; Z79.899 Other long term (current) drug therapy; Z88.0 Allergy status to penicillin; Z88.8 Allergy status to other drugs, medicaments and biological substances
CPT/HCPCS: 36415; 42826; 80048; 85027; 88302; 93005; J1100; J2250; J2405; J3010

== ENCOUNTER → 2021-10-20 | Outpatient (CLI) | payer MEDICARE, MEDICAID ==
[~2021-10-20] MED LIST changes: -LR 1,000 ML IV ONE
== END ==
LOC: M LABSMTC 12:49
PROVIDERS: ATTEND Anesthesiology
DX: Z01.812 Encounter for preprocedural laboratory examination (principal); Z20.822 Contact with and (suspected) exposure to COVID-19

== ENCOUNTER → 2021-10-20 | Outpatient (CLI) | payer MEDICARE, MEDICAID ==
[2021-10-20 15:15] LABS: BASO # 0.1 10^3/uL (0.0-0.2); BASO % 0.9 % (0.0-1.0); EOS # 0.2 10^3/uL (0.0-0.5); EOS % 2.9 % (0.0-3.0); HEMATOCRIT 44.1 % (36.0-47.0); HEMOGLOBIN 14.1 g/dl (12.0-15.5); LYMPH # 1.7 10^3/uL (1.5-5.0); LYMPH % 24.7 % (24.0-44.0); MEAN CORPUSCULAR HEMOGLOBIN 28.5 pg (27.0-33.0); MEAN CORPUSCULAR VOLUME 89.3 fl (80.0-96.0); MONO # 0.4 10^3/uL (0.0-0.8); MONO % 6.2 % (2.0-8.0); NEUTROPHILS # 4.5 10^3/uL (1.5-8.5); NEUTROPHILS % 65.2 % (36.0-66.0); PLATELET COUNT, AUTOMATED 320 10^3/uL (150-450); RED BLOOD COUNT 4.94 10^6/uL (4.00-5.40)
[2021-10-20 15:35] LABS: INR 0.89; PROTHROMBIN TIME 12.4 SECONDS (12.7-14.5)
[2021-10-20 15:36] LABS: PARTIAL THROMBOPLASTIN TIME 33.5 SECONDS (25.9-37.0)
[2021-10-20 15:39] LABS: BLOOD UREA NITROGEN 15 MG/DL (7-18); CALCIUM LEVEL 9.9 MG/DL (8.8-10.2); CARBON DIOXIDE LEVEL 31 MEQ/L (21-32); CHLORIDE LEVEL 108 MEQ/L (98-107); CREATININE FOR GFR 0.93 MG/DL (0.55-1.30); GLOMERULAR FILTRATION RATE > 60.0 (>45); GLUCOSE, FASTING 83 MG/DL (70-100); POTASSIUM SERUM 4.1 MEQ/L (3.5-5.1); SODIUM LEVEL 142 MEQ/L (136-145)
== END ==
LOC: M PLALAB 13:00
PROVIDERS: ATTEND Internal Medicine Pulmonary Disease
DX: C34.11 Malignant neoplasm of upper lobe, right bronchus or lung (principal)

== ENCOUNTER 2021-10-25 06:19 | Day surgery (SDC) | payer MEDICARE, MEDICAID ==
[~2021-10-25] VITALS: Ht 157.5 cm; Wt 35.8 kg
[~2021-10-25 06:19] MED LIST changes: +ALBUTEROL SULFATE 2.5 MG/0.5 ML INH NEB SOLN NEB ONE; +LIDOCAINE 4% INJ 5ML AMP NEB ONE; +LR 1,000 ML IV ONE
[2021-10-25] MEDS ORDERED: CETACAINE SPRAY 5GM As Ordered ONE (07:14)
[2021-10-25] MEDS ORDERED: THROMBIN SOLN 5,000 UNITS VIAL As Ordered ONE (07:14)
[2021-10-25] MEDS ORDERED: LIDOCAINE 2% 100MG/5ML SDV (FOR ANES.) As Ordered ONE (07:15)
[2021-10-25] MEDS ORDERED: propofoL 200 MG/20 ML VIAL As Ordered ONE (07:15)
[2021-10-25] MEDS ORDERED: MIDAZOLAM INJ 2MG/2ML VIAL (J2250 PER 1MG) As Ordered ONE (07:15)
[2021-10-25] MEDS ORDERED: EPINEPHrine 1MG/10ML SYRINGE 1.5IN As Ordered ONE (07:15)
[2021-10-25] MEDS ORDERED: ONDANSETRON 4MG/2ML VIAL As Ordered ONE (07:15)
[2021-10-25] MEDS ORDERED: KETOROLAC 60MG 2ML VIAL As Ordered ONE (07:15)
[2021-10-25] MEDS ORDERED: ROCURONIUM BROMIDE 50 MG/5 ML VIAL As Ordered ONE (07:15)
[2021-10-25] MEDS ORDERED: SUGAMMADEX SODIUM 500 MG/5 ML VIAL (BRIDION) As Ordered ONE (07:15)
[2021-10-25] MEDS ORDERED: dexameTHASONE 4 MG/ML 1ML VIAL (J1100 PER 1MG) As Ordered ONE (07:15)
[2021-10-25] MEDS ORDERED: fentaNYL 100 MCG/2 ML INJECTION (J3010) As Ordered ONE (07:16)
[2021-10-25] MEDS ORDERED: LIDOCAINE 5% OINT 30GM TUBE As Ordered ONE (07:39)
[2021-10-25] MEDS ORDERED: ALBUTEROL SULFATE 2.5 MG/0.5 ML INH NEB SOLN INH ONE (08:40)
[2021-10-25] MEDS ORDERED: ONDANSETRON 4MG/2ML VIAL IV PRN (08:40)
[2021-10-25] MEDS ORDERED: LR 1,000 ML IV SCH (08:40)
[2021-10-25 10:04] VITALS: BP 107/60
== END 2021-10-25 10:10 | disposition home or self-care (01) ==
LOC: M SDC 06:19
PROVIDERS: ATTEND Internal Medicine Pulmonary Disease
DX: C34.11 Malignant neoplasm of upper lobe, right bronchus or lung (principal); R59.0 Localized enlarged lymph nodes; Z90.2 Acquired absence of lung [part of]; G43.909 Migraine, unspecified, not intractable, without status migrainosus; G40.909 Epilepsy, unspecified, not intractable, without status epilepticus; J44.9 Chronic obstructive pulmonary disease, unspecified; Z90.89 Acquired absence of other organs; I95.0 Idiopathic hypotension; K21.9 Gastro-esophageal reflux disease without esophagitis; Z86.73 Personal history of transient ischemic attack (TIA), and cerebral infarction without residual deficits; R06.83 Snoring; Z79.899 Other long term (current) drug therapy; Z79.51 Long term (current) use of inhaled steroids; Z88.0 Allergy status to penicillin; Z88.8 Allergy status to other drugs, medicaments and biological substances; Z88.6 Allergy status to analgesic agent; Z88.5 Allergy status to narcotic agent; F17.218 Nicotine dependence, cigarettes, with other nicotine-induced disorders; R91.8 Other nonspecific abnormal finding of lung field
CPT/HCPCS: 31629; 31654; 88173; 88305; J1100; J1885; J2250; J2405; J3010

== ENCOUNTER → 2022-07-29 | Outpatient (REF) | payer MEDICARE ==
[~2022-07-29] MED LIST changes: -ALBUTEROL SULFATE 2.5 MG/0.5 ML INH NEB SOLN NEB ONE; -LIDOCAINE 4% INJ 5ML AMP NEB ONE; -LR 1,000 ML IV ONE
== END ==
LOC: M LAB REF 18:21
PROVIDERS: ATTEND Physician Assistant Medical
DX: R11.2 Nausea with vomiting, unspecified (principal); R50.9 Fever, unspecified; R05.9 Cough, unspecified

== ENCOUNTER → 2022-12-03 | Outpatient (CLI) | payer MEDICARE ==
[~2022-12-03] MED LIST changes: +NYST-38 SS; -NYST50SS SS
[2022-12-03 13:00] LABS: BLOOD UREA NITROGEN 16 MG/DL (9-23); CREATININE FOR GFR 0.92 MG/DL (0.55-1.30); GLOMERULAR FILTRATION RATE > 60.0 (>45)
== END ==
LOC: M LAB 11:55
PROVIDERS: ATTEND Internal Medicine Pulmonary Disease
DX: R91.8 Other nonspecific abnormal finding of lung field (principal)

== ENCOUNTER → 2022-12-07 | Outpatient (CLI) | payer MEDICARE ==
[~2022-12-07] MED LIST changes: +ISOVUE-370 76% 100ML VIAL As Ordered ONE
== END ==
LOC: M RAD 10:23
PROVIDERS: ATTEND Internal Medicine Pulmonary Disease
DX: R59.0 Localized enlarged lymph nodes (principal); Z90.2 Acquired absence of lung [part of]; J43.2 Centrilobular emphysema; R91.1 Solitary pulmonary nodule; I31.39 Other pericardial effusion (noninflammatory); I70.0 Atherosclerosis of aorta
CPT/HCPCS: 71260; Q9967

== ENCOUNTER → 2023-01-07 | Outpatient (CLI) | payer MEDICARE ==
[~2023-01-07] MED LIST changes: -ISOVUE-370 76% 100ML VIAL As Ordered ONE
== END ==
LOC: M PLARAD 11:09
PROVIDERS: ATTEND Internal Medicine Pulmonary Disease
DX: R91.8 Other nonspecific abnormal finding of lung field (principal); R59.0 Localized enlarged lymph nodes
CPT/HCPCS: 78815; A9552

== ENCOUNTER → 2023-02-08 | Outpatient (CLI) | payer MEDICARE | LOC: M EKG 10:50 | PROVIDERS: ATTEND Internal Medicine Pulmonary Disease | DX: Z01.810 Encounter for preprocedural cardiovascular examination (principal); R91.8 Other nonspecific abnormal finding of lung field ==

== ENCOUNTER → 2023-02-12 | Outpatient (CLI) | payer MEDICARE ==
[~2023-02-12] MED LIST changes: +BUDE10.7 IH; +RIME75TA PO
== END ==
LOC: M CARPUL 02-05 09:54
PROVIDERS: ATTEND Internal Medicine Pulmonary Disease
DX: J44.9 Chronic obstructive pulmonary disease, unspecified (principal)

== ENCOUNTER → 2023-02-20 | Day surgery (SDC) | payer MEDICARE ==
[~2023-02-20] VITALS: Ht 157.5 cm; Wt 34.0 kg
[~2023-02-20] MED LIST changes: +ACETAMINOPHEN 1000MG 100ML IV BAG As Ordered ONE; +ALBUTEROL SULFATE 2.5MG/0.5ML INH NEB SOLN INH ONE; +CETACAINE SPRAY 5GM As Ordered ONE; +EPINEPHrine 1MG/10ML SYRINGE 1.5IN As Ordered ONE; +HYDROMORPHONE HCL 0.5 MG/ 0.5 ML SYRINGE IV PRN; +LIDOCAINE 2% 100MG/5ML SDV (FOR ANES.) As Ordered ONE; +LIDOCAINE PRES-FREE 2% 10ML AMP INH ONE; +LR 1,000 ML IV SCH; +MIDAZOLAM INJ 2MG/2ML VIAL As Ordered ONE; +ONDANSETRON 4MG 2ML VIAL As Ordered ONE; +ONDANSETRON 4MG 2ML VIAL IV PRN; +ROCURONIUM BROMIDE 50MG/5ML VIAL As Ordered ONE; +SUGAMMADEX SODIUM 500 MG/5 ML VIAL (BRIDION) As Ordered ONE; +THROMBIN 5,000 UNITS VIAL As Ordered ONE; +ePHEDrine SULFATE 25 MG/5 ML(5MG/ML) SYRINGE As Ordered ONE; +fentaNYL 100 MCG/2 ML INJECTION As Ordered ONE; +fentaNYL 100 MCG/2 ML INJECTION IV PRN; +oxyCODONE 5MG TAB PO PRN; +propofoL 200 MG/20 ML VIAL As Ordered ONE
[2023-02-20 11:00] VITALS: BP 90/56
== END | disposition home or self-care (01) ==
LOC: M SDC 06:43
PROVIDERS: ATTEND Internal Medicine Pulmonary Disease
DX: R91.8 Other nonspecific abnormal finding of lung field (principal); R59.0 Localized enlarged lymph nodes; J44.9 Chronic obstructive pulmonary disease, unspecified; K21.9 Gastro-esophageal reflux disease without esophagitis; Z85.118 Personal history of other malignant neoplasm of bronchus and lung; F12.10 Cannabis abuse, uncomplicated; F17.218 Nicotine dependence, cigarettes, with other nicotine-induced disorders; M10.9 Gout, unspecified; G43.909 Migraine, unspecified, not intractable, without status migrainosus; G40.909 Epilepsy, unspecified, not intractable, without status epilepticus; Z86.73 Personal history of transient ischemic attack (TIA), and cerebral infarction without residual deficits; Z79.899 Other long term (current) drug therapy; Z79.51 Long term (current) use of inhaled steroids; Z88.0 Allergy status to penicillin; Z88.5 Allergy status to narcotic agent
CPT/HCPCS: 31629; 31654; 71045; 88173; 88305; J0131; J1100; J2250; J2405; J3010

== ENCOUNTER → 2023-05-30 | Outpatient (CLI) | payer MEDICARE ==
[~2023-05-30] MED LIST changes: -ACETAMINOPHEN 1000MG 100ML IV BAG As Ordered ONE; -ALBUTEROL SULFATE 2.5MG/0.5ML INH NEB SOLN INH ONE; -CETACAINE SPRAY 5GM As Ordered ONE; -EPINEPHrine 1MG/10ML SYRINGE 1.5IN As Ordered ONE; -HYDROMORPHONE HCL 0.5 MG/ 0.5 ML SYRINGE IV PRN; -LIDOCAINE 2% 100MG/5ML SDV (FOR ANES.) As Ordered ONE; -LIDOCAINE PRES-FREE 2% 10ML AMP INH ONE; -LR 1,000 ML IV SCH; -MIDAZOLAM INJ 2MG/2ML VIAL As Ordered ONE; -ONDANSETRON 4MG 2ML VIAL As Ordered ONE; -ONDANSETRON 4MG 2ML VIAL IV PRN; -ROCURONIUM BROMIDE 50MG/5ML VIAL As Ordered ONE; -SUGAMMADEX SODIUM 500 MG/5 ML VIAL (BRIDION) As Ordered ONE; -THROMBIN 5,000 UNITS VIAL As Ordered ONE; -ePHEDrine SULFATE 25 MG/5 ML(5MG/ML) SYRINGE As Ordered ONE; -fentaNYL 100 MCG/2 ML INJECTION As Ordered ONE; -fentaNYL 100 MCG/2 ML INJECTION IV PRN; -oxyCODONE 5MG TAB PO PRN; -propofoL 200 MG/20 ML VIAL As Ordered ONE
[2023-05-30 16:43] LABS: BASO # 0.1 10^3/uL (0.0-0.2); BASO % 1.2 % (0.0-1.0); EOS # 0.3 10^3/uL (0.0-0.5); EOS % 4.2 % (0.0-3.0); HEMATOCRIT 46.5 % (36.0-47.0); HEMOGLOBIN 14.9 g/dl (12.0-15.5); LYMPH # 1.5 10^3/uL (1.5-5.0); LYMPH % 25.6 % (24.0-44.0); MEAN CORPUSCULAR HEMOGLOBIN 28.6 pg (27.0-33.0); MEAN CORPUSCULAR VOLUME 89.3 fl (80.0-96.0); MONO # 0.5 10^3/uL (0.0-0.8); NEUTROPHILS # 3.7 10^3/uL (1.5-8.5); NEUTROPHILS % 60.8 % (36.0-66.0); PLATELET COUNT, AUTOMATED 269 10^3/uL (150-450); RED BLOOD COUNT 5.21 10^6/uL (4.00-5.40)
[2023-05-30 17:08] LABS: ALKALINE PHOSPHATASE 84 U/L (46-116); ALT/SGPT 20 U/L (7.0-40); AST/SGOT 19 U/L (<34); BILIRUBIN,TOTAL 0.3 MG/DL (0.3-1.2); BLOOD UREA NITROGEN 12 MG/DL (9-23); CALCIUM LEVEL 10.1 MG/DL (8.3-10.6); CARBON DIOXIDE LEVEL 27 MMOL/L (20-31); CHLORIDE LEVEL 107 MMOL/L (98-107); CREATININE FOR GFR 0.84 MG/DL (0.55-1.30); GLOMERULAR FILTRATION RATE > 60.0 (>45); GLUCOSE, FASTING 86 MG/DL (74-106); POTASSIUM SERUM 4.5 MMOL/L (3.5-5.1); SODIUM LEVEL 141 MMOL/L (136-145)
== END ==
LOC: M LAB 15:55
PROVIDERS: ATTEND Internal Medicine
DX: R59.0 Localized enlarged lymph nodes (principal)

== ENCOUNTER → 2023-06-11 | Outpatient (CLI) | payer MEDICARE ==
[~2023-06-11] MED LIST changes: +ISOVUE-370 76% 100ML VIAL As Ordered ONE
== END ==
LOC: M RAD 16:47
PROVIDERS: ATTEND Thoracic Surgery (Cardiothoracic Vascular Surgery)
DX: R59.0 Localized enlarged lymph nodes (principal); R91.1 Solitary pulmonary nodule; J43.9 Emphysema, unspecified; I31.39 Other pericardial effusion (noninflammatory); I77.1 Stricture of artery
CPT/HCPCS: 71260; Q9967

== ENCOUNTER → 2023-06-14 | Outpatient (CLI) | payer MEDICARE ==
[~2023-06-14] MED LIST changes: -ISOVUE-370 76% 100ML VIAL As Ordered ONE
[2023-06-14 11:48] LABS: BASO # 0.1 10^3/uL (0.0-0.2); BASO % 1.3 % (0.0-1.0); EOS # 0.3 10^3/uL (0.0-0.5); EOS % 5.2 % (0.0-3.0); HEMATOCRIT 44.5 % (36.0-47.0); HEMOGLOBIN 14.2 g/dl (12.0-15.5); LYMPH # 1.6 10^3/uL (1.5-5.0); LYMPH % 25.5 % (24.0-44.0); MEAN CORPUSCULAR HEMOGLOBIN 28.6 pg (27.0-33.0); MEAN CORPUSCULAR HGB CONC 31.9 g/dl (32.0-36.5); MEAN CORPUSCULAR VOLUME 89.7 fl (80.0-96.0); MONO # 0.4 10^3/uL (0.0-0.8); MONO % 7.1 % (2.0-8.0); NEUTROPHILS # 3.8 10^3/uL (1.5-8.5); NEUTROPHILS % 60.6 % (36.0-66.0); PLATELET COUNT, AUTOMATED 328 10^3/uL (150-450); RED BLOOD COUNT 4.96 10^6/uL (4.00-5.40); WHITE BLOOD COUNT 6.2 10^3/uL (4.0-10.0)
[2023-06-14 12:14] LABS: C REACTIVE PROTEIN QUANTITATIV < 0.40 MG/DL (<1.0); ERYTHROCYTE SEDIMENTATION RATE 22 mm/hr (0-30)
[2023-06-14 12:15] LABS: ALBUMIN 3.9 G/DL (3.2-5.2); ALKALINE PHOSPHATASE 88 U/L (46-116); ALT/SGPT 32 U/L (7.0-40); AST/SGOT 20 U/L (<34); BILIRUBIN,TOTAL 0.4 MG/DL (0.3-1.2); BLOOD UREA NITROGEN 19 MG/DL (9-23); CALCIUM LEVEL 9.9 MG/DL (8.3-10.6); CARBON DIOXIDE LEVEL 31 MMOL/L (20-31); CHLORIDE LEVEL 105 MMOL/L (98-107); GLOMERULAR FILTRATION RATE 58.7 (>45); GLUCOSE, FASTING 82 MG/DL (74-106); POTASSIUM SERUM 4.3 MMOL/L (3.5-5.1); SODIUM LEVEL 141 MMOL/L (136-145); TOTAL PROTEIN 7.3 G/DL (5.7-8.2)
[2023-06-15 19:17] LABS: URIC ACID 4.3 MG/DL (3.1-7.8)
[2023-06-15 19:20] LABS: RHEUMATOID FACTOR QUANT 6.8 IU/ML (<14)
[2023-06-15 23:10] LABS: CYCLIC CITRULLINATED PEPTIDE < 1 units (0-19)
== END ==
LOC: M LAB 10:34
PROVIDERS: ATTEND Physician Assistant
DX: R59.0 Localized enlarged lymph nodes (principal)

== ENCOUNTER → 2024-02-06 | Outpatient (CLI) | payer MEDICARE ==
[2024-02-06 13:17] LABS: BLOOD UREA NITROGEN 16 MG/DL (9-23); CREATININE FOR GFR 0.88 MG/DL (0.55-1.30); GLOMERULAR FILTRATION RATE > 60.0 (>45)
[2024-02-06 13:19] LABS: COMPLEMENT C3 127.2 MG/DL (90.0-170.0); COMPLEMENT C4 41.3 MG/DL (12-36)
[2024-02-06 13:22] LABS: IMMUNOGLOBULIN E 332.7 IU/ML (0-378)
== END ==
LOC: M LAB 12:16
PROVIDERS: ATTEND Internal Medicine Pulmonary Disease
DX: R59.0 Localized enlarged lymph nodes (principal)

== ENCOUNTER → 2024-02-13 | Outpatient (CLI) | payer MEDICARE ==
[~2024-02-13] MED LIST changes: -BUDE10.7 IH; +BUDE10.7 INH; +ISOVUE-370 76% 100ML VIAL ONE
== END ==
LOC: M PLAIMG 13:59
PROVIDERS: ATTEND Internal Medicine Pulmonary Disease
DX: R91.8 Other nonspecific abnormal finding of lung field (principal)
CPT/HCPCS: 71260; Q9967

== ENCOUNTER → 2024-03-12 | Outpatient (CLI) | payer MEDICARE ==
[~2024-03-12] MED LIST changes: +ASPI81TAEC PO; +COLC0.6T47 PO; -ISOVUE-370 76% 100ML VIAL ONE; +METO1TAB87 PO; +ONDA-282; -ONDA4TAB6
== END ==
LOC: M WUC 08:41
PROVIDERS: ATTEND Thoracic Surgery (Cardiothoracic Vascular Surgery)
DX: I31.39 Other pericardial effusion (noninflammatory) (principal)

== ENCOUNTER 2024-04-16 09:08 | Emergency (ER) | payer MEDICARE ==
[~2024-04-16] VITALS: Ht 157.5 cm; Wt 33.9 kg
[2024-04-16 09:09] VITALS: BP 120/80; TEMP 97.7; O2SAT 99
[2024-04-16] MEDS ORDERED: ISOVUE-370 76% 100ML VIAL As Ordered ONE (10:06)
[2024-04-16] MEDS: dexAMETHasone 20MG/5ML VIAL IV ONE (11:26)
[2024-04-16] MEDS: IPRATROPIUM 0.5MG/ALBUTEROL 2.5MG INH SOL UD 3ML (DUONEB) NEB SCH (11:28)
[2024-04-16 11:44] LABS: BASO # 0.1 10^3/uL (0.0-0.2); BASO % 0.9 % (0.0-1.0); EOS # 0.4 10^3/uL (0.0-0.5); EOS % 7.8 % (0.0-3.0); HEMATOCRIT 43.5 % (36.0-47.0); LYMPH # 0.7 10^3/uL (1.5-5.0); LYMPH % 12.5 % (24.0-44.0); MEAN CORPUSCULAR HEMOGLOBIN 29.2 pg (27.0-33.0); MEAN CORPUSCULAR HGB CONC 32.2 g/dl (32.0-36.5); MEAN CORPUSCULAR VOLUME 90.8 fl (80.0-96.0); MONO # 0.4 10^3/uL (0.0-0.8); MONO % 7.8 % (2.0-8.0); NEUTROPHILS # 3.9 10^3/uL (1.5-8.5); NEUTROPHILS % 70.8 % (36.0-66.0); PLATELET COUNT, AUTOMATED 258 10^3/uL (150-450); RED BLOOD COUNT 4.79 10^6/uL (4.00-5.40); WHITE BLOOD COUNT 5.5 10^3/uL (4.0-10.0)
[2024-04-16] MEDS ORDERED: ASPI81TA26 PO (12:04)
[2024-04-16] MEDS ORDERED: HOME MED LIST COMPLETE! XX SCH (12:05)
[2024-04-16 12:14] LABS: ALBUMIN 3.3 G/DL (3.2-5.2); ALKALINE PHOSPHATASE 78 U/L (46-116); ALT/SGPT 26 U/L (7.0-40); AST/SGOT 18 U/L (<34); BILIRUBIN,DIRECT 0.2 MG/DL (<0.4); BILIRUBIN,TOTAL 0.5 MG/DL (0.3-1.2); BLOOD UREA NITROGEN 17 MG/DL (9-23); CALCIUM LEVEL 9.4 MG/DL (8.3-10.6); CARBON DIOXIDE LEVEL 27 MMOL/L (20-31); CHLORIDE LEVEL 111 MMOL/L (98-107); GLOMERULAR FILTRATION RATE > 60.0 (>45); GLUCOSE, FASTING 79 MG/DL (74-106); SODIUM LEVEL 143 MMOL/L (136-145)
[2024-04-16] MEDS ORDERED: PRED10TA2 PO (13:26)
== END 2024-04-16 13:35 | disposition home or self-care (01) ==
LOC: M ED 09:08
DX: J44.1 Chronic obstructive pulmonary disease with (acute) exacerbation (principal); I31.39 Other pericardial effusion (noninflammatory); I45.19 Other right bundle-branch block; I51.7 Cardiomegaly; I34.0 Nonrheumatic mitral (valve) insufficiency; Z87.891 Personal history of nicotine dependence; Z86.79 Personal history of other diseases of the circulatory system; Z88.0 Allergy status to penicillin; Z88.5 Allergy status to narcotic agent; Z79.52 Long term (current) use of systemic steroids; Z79.82 Long term (current) use of aspirin; Z79.899 Other long term (current) drug therapy
CPT/HCPCS: 36415; 71046; 71250; 80047; 80048; 80076; 83605; 83880; 85025; 87040; 87486; 87581; 87633; 87798; 93005; 93041; 93306; 94640; 94760; 96374; 99284; J1100; Q9967

== ENCOUNTER 2024-04-29 10:48 | Day surgery (SDC) | payer MEDICARE ==
[~2024-04-29] VITALS: Ht 157.5 cm; Wt 31.7 kg
[~2024-04-29 10:48] MED LIST changes: +ASPI81TA26 PO; +PRED10TA2 PO
[2024-04-29] MEDS ORDERED: fentaNYL 100 MCG/2 ML INJECTION As Ordered ONE (11:31)
[2024-04-29] MEDS ORDERED: LIDOCAINE 2% 100MG/5ML SDV (FOR ANES.) As Ordered ONE (11:32)
[2024-04-29] MEDS ORDERED: ROCURONIUM BROMIDE 50MG/5ML VIAL As Ordered ONE (11:32)
[2024-04-29] MEDS ORDERED: MIDAZOLAM INJ 2MG/2ML VIAL As Ordered ONE (11:32)
[2024-04-29] MEDS ORDERED: propofoL 200 MG/20 ML VIAL As Ordered ONE (11:32)
[2024-04-29] MEDS ORDERED: ONDANSETRON 4MG 2ML VIAL As Ordered ONE (11:32)
[2024-04-29] MEDS: THROMBIN 5,000 UNITS VIAL As Ordered ONE (12:25)
[2024-04-29] MEDS: EPINEPHrine 1MG/10ML SYRINGE 1.5IN As Ordered ONE (12:26)
[2024-04-29] MEDS: CETACAINE SPRAY 5GM As Ordered ONE (12:47)
[2024-04-29] MEDS ORDERED: VASOPRESSIN INJ 20UNITS/ML 1ML VIAL As Ordered ONE (12:48)
[2024-04-29] MEDS ORDERED: SUGAMMADEX SODIUM 500 MG/5 ML VIAL (BRIDION) As Ordered ONE (13:14)
[2024-04-29] MEDS ORDERED: oxyCODONE 5MG TAB PO PRN (13:20)
[2024-04-29] MEDS ORDERED: fentaNYL 100 MCG/2 ML INJECTION IV PRN (13:20)
[2024-04-29] MEDS ORDERED: ONDANSETRON 4MG 2ML VIAL IV PRN (13:20)
[2024-04-29 14:45] VITALS: BP 108/62; TEMP 98.3; O2SAT 97
== END 2024-04-29 14:50 | disposition home or self-care (01) ==
LOC: M SDC 10:48
PROVIDERS: ATTEND Internal Medicine Pulmonary Disease
DX: C85.12 Unspecified B-cell lymphoma, intrathoracic lymph nodes (principal); K21.9 Gastro-esophageal reflux disease without esophagitis; F17.218 Nicotine dependence, cigarettes, with other nicotine-induced disorders; G43.909 Migraine, unspecified, not intractable, without status migrainosus; Z86.73 Personal history of transient ischemic attack (TIA), and cerebral infarction without residual deficits; J44.9 Chronic obstructive pulmonary disease, unspecified; Z88.0 Allergy status to penicillin; Z88.5 Allergy status to narcotic agent; Z79.51 Long term (current) use of inhaled steroids; Z79.52 Long term (current) use of systemic steroids; Z79.899 Other long term (current) drug therapy
CPT/HCPCS: 31629; 31654; 71045; 88173; 88305; J1100; J2250; J2405; J2598; J3010

== ENCOUNTER → 2024-06-02 | Outpatient (CLI) | payer MEDICARE ==
[~2024-06-02] MED LIST changes: +ALLO300T2 PO; +NAPR220C14 PO; +ONDA-84 PO
== END ==
LOC: M PLARAD 10:27
PROVIDERS: ATTEND Internal Medicine Hematology & Oncology
DX: C83.38 Diffuse large B-cell lymphoma, lymph nodes of multiple sites (principal)
CPT/HCPCS: 78815; A9552

== ENCOUNTER 2024-07-07 06:44 | Emergency (ER) | payer MEDICARE ==
[~2024-07-07] VITALS: Ht 157.5 cm; Wt 31.8 kg
[2024-07-07] MEDS ORDERED: BUDE0.5S6 (07:15)
[2024-07-07] MEDS: ONDANSETRON 4MG 2ML VIAL IV ONE (09:44)
[2024-07-07] MEDS: MORPHINE 2 MG/ML 1ML VIAL IV PRN (09:47)
[2024-07-07 09:53] LABS: BASO # 0.1 10^3/uL (0.0-0.2); BASO % 0.6 % (0.0-1.0); EOS # 0.4 10^3/uL (0.0-0.5); EOS % 3.1 % (0.0-3.0); HEMATOCRIT 42.3 % (36.0-47.0); HEMOGLOBIN 14.2 g/dl (12.0-15.5); LYMPH # 1.1 10^3/uL (1.5-5.0); LYMPH % 8.3 % (24.0-44.0); MEAN CORPUSCULAR HEMOGLOBIN 29.1 pg (27.0-33.0); MEAN CORPUSCULAR HGB CONC 33.6 g/dl (32.0-36.5); MEAN CORPUSCULAR VOLUME 86.7 fl (80.0-96.0); MONO # 0.9 10^3/uL (0.0-0.8); MONO % 6.8 % (2.0-8.0); NEUTROPHILS # 10.4 10^3/uL (1.5-8.5); PLATELET COUNT, AUTOMATED 308 10^3/uL (150-450); RED BLOOD COUNT 4.88 10^6/uL (4.00-5.40); WHITE BLOOD COUNT 12.8 10^3/uL (4.0-10.0)
[2024-07-07] MEDS: GASTROGRAFIN SOLUTION 30ML PO SCH (10:03)
[2024-07-07 10:28] LABS: ALBUMIN 3.4 G/DL (3.2-5.2); ALKALINE PHOSPHATASE 73 U/L (46-116); ALT/SGPT 16 U/L (7.0-40); AST/SGOT 28 U/L (<34); BILIRUBIN,DIRECT 0.1 MG/DL (<0.4); BILIRUBIN,TOTAL 0.6 MG/DL (0.3-1.2); BLOOD UREA NITROGEN 23 MG/DL (9-23); CALCIUM LEVEL 9.2 MG/DL (8.3-10.6); CARBON DIOXIDE LEVEL 25 MMOL/L (20-31); CHLORIDE LEVEL 107 MMOL/L (98-107); GLOMERULAR FILTRATION RATE > 60.0 (>45); GLUCOSE, FASTING 82 MG/DL (74-106); LIPASE 33 U/L (12-53); POTASSIUM SERUM 4.7 MMOL/L (3.5-5.1); SODIUM LEVEL 137 MMOL/L (136-145); TOTAL PROTEIN 6.5 G/DL (5.7-8.2)
[2024-07-07] MEDS ORDERED: ISOVUE-370 76% 100ML VIAL As Ordered ONE (11:16)
[2024-07-07] MEDS ORDERED: MIRA3350 PO (12:40)
[2024-07-07] MEDS: MAGNESIUM CITRATE 300ML BTL PO ONE (12:42)
[2024-07-07 12:43] VITALS: BP 105/53; TEMP 97.7; O2SAT 95
== END 2024-07-07 12:45 | disposition home or self-care (01) ==
LOC: M ED 06:44
DX: K59.00 Constipation, unspecified (principal); Z88.0 Allergy status to penicillin; Z88.5 Allergy status to narcotic agent; F17.200 Nicotine dependence, unspecified, uncomplicated; J44.9 Chronic obstructive pulmonary disease, unspecified; Z79.899 Other long term (current) drug therapy
CPT/HCPCS: 74177; 80048; 80076; 83605; 83690; 85025; 96374; 96375; 99284; J2405; Q9963; Q9967

== ENCOUNTER → 2024-10-05 | Outpatient (CLI) | payer MEDICARE ==
[~2024-10-05] MED LIST changes: +BUDE0.5S6; +MIRA3350 PO
== END ==
LOC: M PLARAD 11:59
PROVIDERS: ATTEND Internal Medicine Hematology & Oncology
DX: C82.98 Follicular lymphoma, unspecified, lymph nodes of multiple sites (principal)
CPT/HCPCS: 78815; A9552